=== PATIENT | male | born 1950 | race Caucasian/White ===

== ENCOUNTER 2018-04-28 16:29 | Observation (INO) ==
[2018-04-28 17:09] LABS: Baso % (Auto) 0.1 % (0.0-2.0); Eos % (Auto) 0.5 % (0.0-4.0); Hematocrit 27.4 % (39.0-51.0); Hemoglobin 9.1 gm/dL (13.0-17.0); Lymph # (Auto) 0.7 th/mm3 (1.0-4.8); Lymph % (Auto) 7.9 % (9.0-44.0); Mean Corpuscular HGB Conc 33.2 % (32.0-36.0); Mean Corpuscular Volume 93.2 fL (80.0-100.0); Mean Platelet Volume 10.2 fL (7.0-11.0); Mono # (Auto) 0.6 th/mm3 (0.0-0.9); Mono % (Auto) 6.4 % (0.0-8.0); Neut # (Auto) 7.9 th/mm3 (1.8-7.7); Neut % (Auto) 85.1 % (16.0-70.0); Platelet Count 103 th/mm3 (150-450); Red Blood Count 2.94 mil/mm3 (4.50-5.90); White Blood Count 9.3 th/mm3 (4.0-11.0)
--- NOTE | 2018-04-28 17:22 | CT ---
EXAM DATE: 04/28/2018 4:46 PM EDT AGE/SEX: 67 years / Male INDICATIONS: Altered Mental Status CLINICAL DATA: This is the patient's initial encounter. Patient reports that signs and symptoms have been present for 1 day and indicates a pain score of 0/10. MEDICAL/SURGICAL HISTORY: Diabetes. Gastroesophageal reflux disease. Hypertension. None. RADIATION DOSE: 42.20 CTDI (mGy) [place] [facility] [place]. . TECHNIQUE: CT of the head without contrast. Using automated exposure control and adjustment of the mA and/or kV according to patient size, radiation dose was kept as low as reasonably achievable to ob tain optimal diagnostic quality images. DICOM format image data is available electronically for revi ew and comparison. FINDINGS: Cerebrum: Mild diffuse cerebral atrophy. The ventricles are normal for degree of atrophy. Stable non specific bilateral basal ganglia calcifications. No evidence of midline shift, mass lesion, hemorrhag e or acute infarction. No extraaxial fluid collections are seen. Posterior Fossa: The cerebellum and brainstem are intact. The 4th ventricle is midline. The cerebe llopontine angle is unremarkable. Extracranial: The visualized portion of the orbits is intact. Skull: The calvaria is intact. No evidence of skull fracture. CONCLUSION: 1. Stable mild atrophy without acute intracranial abnormality. . Electronically signed by: Massimo Nieto MD 04/28/2018 5:21 PM EDT
[2018-04-28 17:27] LABS: Amorphous Sediment,Urine Rare /hpf; Bacteria,Urine Occasional /hpf; Bilirubin,Urine Negative (Negative); Clarity,Urine Cloudy (Clear); Color,Urine Yellow (Yellw/Straw); Glucose,Urine (UA) 50 mg/dL (Negative); Leukocyte Esterase,Urine Negative (Negative); Nitrite,Urine Negative (Negative); Specific Gravity,Urine 1.008 (1.002-1.035); Transitional Epi Cells,Urine 1 /hpf
[2018-04-28 17:29] LABS: Anion Gap 10 meq/L (5-15); Aspartate Aminotransferase 25 U/L (15-37); Blood Urea Nitrogen 81 mg/dL (7-18); Calcium 8.4 mg/dL (8.5-10.1); Carbon Dioxide 12.4 meq/L (21.0-32.0); Chloride 121 meq/L (98-107); Glomerular Filtration Rate 11 mL/min (>89); Glucose,Random 155 mg/dL (74-106); Magnesium 1.9 mg/dL (1.5-2.5); Potassium 5.5 meq/L (3.5-5.1); Sodium 143 meq/L (136-145)
[2018-04-28 17:30] LABS: Alanine Aminotransferase 29 U/L (12-78)
[2018-04-28 17:34] LABS: Alkaline Phosphatase 170 U/L (45-117); Total Protein 7.3 g/dL (6.4-8.2); Troponin I 0.03 ng/mL (0.02-0.05)
[2018-04-28] MEDS ORDERED: Sod Chloride 0.9% Inj 1,000 ML IV.SIG SCH (17:45)
--- NOTE | 2018-04-28 18:11 | XR ---
EXAM DATE: 04/28/2018 5:53 PM EDT AGE/SEX: 67 years / Male INDICATIONS: Chest pain CLINICAL DATA: This is the patient's initial encounter. Patient reports that signs and symptoms have been present for 1 day and indicates a pain score of Nonresponsive. MEDICAL/SURGICAL HISTORY: . Diabetes. Gastroesophageal reflux disease. Hypertension None. [place] [facility] [place] . FINDINGS: No significant focal pleural or parenchymal opacities. The cardiomediastinal contours are unremarkabl e. Osseous structures are intact. CONCLUSION: 1. Motion degraded exam. 2. Otherwise, no acute abnormality. Electronically signed by: Massimo Nieto MD 04/28/2018 6:10 PM EDT
[2018-04-28] MEDS ORDERED: Acetaminophen 325 MG Tablet PO PRN (18:36)
[2018-04-28] MEDS ORDERED: Sod Chloride 0.9% Inj 1,000 ML IV.CONT SCH (18:45)
--- NOTE | 2018-04-28 18:46 | ED ---
HPI General Chief complaint: Altered Mental Status Stated complaint: altered mental status Time Seen by Provider: 04/28/18 16:41 History of Present Illness HPI narrative: patient is a 67 year old male present from [place] for evaluation of altered mental status since 644 today. per [facility], [facility] staff said he had slurred speech and was reluctant to move his right upper ext. he is unable r unwolling to provide any history to me. apparently has paranoid schizophrenia. patient does have dnr status on his documentation from [facility] and [facility] had faxed us a copy of dnr. Related Data Home Medications Medication Instructions Recorded Confirmed amoxicillin-pot clavulanate 1 tab PO BID 04/28/18 04/28/18 [Augmentin] atorvastatin 10 mg PO DAILY 04/28/18 04/28/18 docusate sodium 50 mg PO DAILY 04/28/18 04/28/18 ferrous sulfate 325 mg PO DAILY 04/28/18 04/28/18 lorazepam [Ativan] 0.25 mg PO DAILY 04/28/18 04/28/18 quetiapine [Seroquel XR] 200 mg PO QPM 04/28/18 04/28/18 trihexyphenidyl 2 mg PO DAILY 04/28/18 04/28/18 Allergies Allergy/AdvReac Type Severity Reaction Status Date / Time lithium AdvReac Severe CAUSED Verified 04/28/18 16:46 DECREASED RENAL FUNCTION Review of Systems ROS Unobtainable ROS Unobtainable: unobtainable due to mental condition PMFSH Medical History Medical History AV block (Acute) Depression (Acute) Diabetes (Acute) GERD (gastroesophageal reflux disease) (Acute) Hyperlipidemia (Acute) Hypertension (Acute) Hypothyroid (Acute) Muscle weakness (generalized) (Acute) 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 Father ETOH abuse Throat cancer Other Type 2 diabetes mellitus Social History Social History Substance History: Unable to Obtain Smoking Status: Unknown if ever smoked How Often Do You Have a Drink Containing Alcohol: Unable to Obtain Recent Travel in [facility] within the Last 8 Weeks: No Recent Out of Country Travel within the Last 8 Weeks: No Immunization History Tetanus Immunization: Unable to Assess Exam Narrative Exam Narrative: GENERAL: Well-developed, elderly male, pleasantly confused. SKIN: Focused skin assessment warm/dry. HEAD: Atraumatic. Normocephalic. EYES: Pupils equal and round. No scleral icterus. No injection or drainage. ENT: No nasal bleeding or discharge. Mucous membranes pink and moist. NECK: Trachea midline. No JVD. CARDIOVASCULAR: Regular rate and rhythm. No murmur appreciated. RESPIRATORY: No accessory muscle use. Clear to auscultation. Breath sounds equal bilaterally. GASTROINTESTINAL: Abdomen soft, non-tender, nondistended. Hepatic and splenic margins not palpable. MUSCULOSKELETAL: No obvious deformities. No clubbing. No cyanosis. No edema. NEUROLOGICAL: Awake and alert, will not answer orientation questions, occasionally answers with some gibberish or nonsensical answers. Does not follow commands in any extremity but does move all 4 extremities. No obvious facial droop. Does not participate cranial nerve examination. PSYCHIATRIC: Unable to properly assess. Course Initial Documented Vital Signs Pulse Rate 103 H 04/28/18 16:43 Respiratory Rate 20 04/28/18 16:43 Blood Pressure 135/76 04/28/18 16:43 Pulse Oximetry 100 04/28/18 16:43 Last Documented Vital Signs Temperature 98.3 F 04/29/18 12:00 Pulse Rate 110 H 04/29/18 12:00 Respiratory Rate 20 04/29/18 12:00 Blood Pressure 119/65 04/29/18 12:00 Pulse Oximetry 94 L 04/29/18 12:00 Medical Decision Making [facility] Narrative Medical decision making narrative: Patient 67-year-old male with history of paranoid schizophrenia usually talkative, usually walks with assist and is been spending more time in a wheelchair recently. He presents emergency department for evaluation of more altered mental status since about 645 this morning. Nursing and his facility were noticed that he had some right-sided arm weakness and some slurred speech. Patient very uncooperative with my exam, did allow nursing to place a Liu catheter on him which did yield 1500 cc of urine, it was then removed as I think the patient has a high probability of self removal and trauma there in. Patient does not have urinary tract infection, chest x- ray clear, CT head negative. The labs were significant for an acute kidney injury with potassium of 5.5, mild acidosis with a bicarb of 12, he does have uremia which is worsening usually runs in the 40s now 80s. This all was discussed with the patient's sister Ms. Cristela Suarez who is the patient's surrogate as mother deferred this responsibility. She would like the patient to be admitted for further workup and I think this is reasonable. I discussed the patient with Dr. Figueroa, I suggested a palliative care consult may be necessary as well as the patient has had very low healthcare understanding and may not be a candidate for aggressive intervention and is denied healthcare workups in the past and has denied nephrology workup as an outpatient. Medical Screen Exam Complete: Yes Emergency Medical Condition: Yes Lab Data Lab results narrative: I did review the labs on admission. Cr 5.34 up from 3.7 , BUN 81 up from 41, potassium 5.5 up from 4.0, bicarb 12.4 down from 18.9, glucose 155. Comparison values are from 12/27/2017. The labs below are from after admission. Result diagrams: 04/29/18 06:34 04/29/18 06:34 Lab Results 04/28/18 04/28/18 04/28/18 Range/Units 16:51 16:51 16:51 WBC 9.3 (4.0-11.0) th/mm3 RBC 2.94 L (4.50-5.90) mil/mm3 Hgb 9.1 L (13.0-17.0) gm/dL Hct 27.4 L (39.0-51.0) % MCV 93.2 (80.0-100.0) fL MCH 31.0 (27.0-34.0) pg MCHC 33.2 (32.0-36.0) % RDW 15.0 (11.6-17.2) % Plt Count 103 L (150-450) th/mm3 MPV 10.2 (7.0-11.0) fL Neut % (Auto) 85.1 H (16.0-70.0) % Lymph % (Auto) 7.9 L (9.0-44.0) % [place] % (Auto) 6.4 (0.0-8.0) % Eos % (Auto) 0.5 (0.0-4.0) % Baso % (Auto) 0.1 (0.0-2.0) % Neut # (Auto) 7.9 H (1.8-7.7) th/mm3 Lymph # (Auto) 0.7 L (1.0-4.8) th/mm3 [place] # (Auto) 0.6 (0.0-0.9) th/mm3 Eos # (Auto) 0.0 (0.0-0.4) th/mm3 Baso # (Auto) 0.0 (0.0-0.2) th/mm3 WBC Differential . Differential Comment Auto diff final Sodium 143 (136-145) meq/L Potassium 5.5 H (3.5-5.1) meq/L Chloride 121 H (98-107) meq/L Carbon Dioxide 12.4 L (21.0-32.0) meq/L Anion Gap 10 (5-15) meq/L BUN 81 H (7-18) mg/dL Creatinine 5.34 H (0.60-1.30) mg/dL Estimated GFR 11 L (>89) mL/min POC Glucose (68-110) mg/dl Random Glucose 155 H (74-106) mg/dL Calcium 8.4 L (8.5-10.1) mg/dL Magnesium 1.9 (1.5-2.5) mg/dL Total Bilirubin 0.2 (0.2-1.0) mg/dL AST 25 (15-37) U/L ALT 29 (12-78) U/L Alkaline Phosphatase 170 H (45-117) U/L Troponin I 0.03 (0.02-0.05) ng/mL Total Protein 7.3 (6.4-8.2) g/dL Albumin 3.0 L (3.4-5.0) g/dL TSH (0.358-3.740) uIU/mL Urine Color Yellow (Yellw/Straw) Urine Clarity Cloudy H (Clear) Urine pH 5.0 (5.0-8.5) Ur Specific [place] 1.008 (1.002-1.035) Urine Protein 30 H (Neg-Trace) mg/dL Urine Glucose (UA) 50 (Negative) mg/dL Urine Ketones Negative (Negative) mg/dL Urine Occult Blood Small H (Negative) Urine Nitrate Negative (Negative) Urine Bilirubin Negative (Negative) Urine Urobilinogen Less than 2 (Less than 2) mg/dL Ur Leukocyte Esterase Negative (Negative) Urine RBC 1 (0-3) /hpf Urine WBC 1 (0-5) /hpf Ur Transition Epith Cell 1 (None) /hpf Amorphous Sediment Rare H (None) /hpf Urine Bacteria Occasional H (None) /hpf Micro UA Comment Cath-culture ind Ur Microscopic Review Not Reportable Urine Culture Comments Cath-cult indicated 04/28/18 04/28/18 04/28/18 Range/Units 19:16 20:32 20:56 WBC (4.0-11.0) th/mm3 RBC (4.50-5.90) mil/mm3 Hgb (13.0-17.0) gm/dL Hct (39.0-51.0) % MCV (80.0-100.0) fL MCH (27.0-34.0) pg MCHC (32.0-36.0) % RDW (11.6-17.2) % Plt Count (150-450) th/mm3 MPV (7.0-11.0) fL Neut % (Auto) (16.0-70.0) % Lymph % (Auto) (9.0-44.0) % [place] % (Auto) (0.0-8.0) % Eos % (Auto) (0.0-4.0) % Baso % (Auto) (0.0-2.0) % Neut # (Auto) (1.8-7.7) th/mm3 Lymph # (Auto) (1.0-4.8) th/mm3 [place] # (Auto) (0.0-0.9) th/mm3 Eos # (Auto) (0.0-0.4) th/mm3 Baso # (Auto) (0.0-0.2) th/mm3 WBC Differential Differential Comment Sodium (136-145) meq/L Potassium 5.1 (3.5-5.1) meq/L Chloride (98-107) meq/L Carbon Dioxide (21.0-32.0) meq/L Anion Gap (5-15) meq/L BUN (7-18) mg/dL Creatinine (0.60-1.30) mg/dL Estimated GFR (>89) mL/min POC Glucose 37 L* 154 H (68-110) mg/dl Random Glucose (74-106) mg/dL Calcium (8.5-10.1) mg/dL Magnesium (1.5-2.5) mg/dL Total Bilirubin (0.2-1.0) mg/dL AST (15-37) U/L ALT (12-78) U/L Alkaline Phosphatase (45-117) U/L Troponin I (0.02-0.05) ng/mL Total Protein (6.4-8.2) g/dL Albumin (3.4-5.0) g/dL TSH (0.358-3.740) uIU/mL Urine Color (Yellw/Straw) Urine Clarity (Clear) Urine pH (5.0-8.5) Ur Specific [place] (1.002-1.035) Urine Protein (Neg-Trace) mg/dL Urine Glucose (UA) (Negative) mg/dL Urine Ketones (Negative) mg/dL Urine Occult Blood (Negative) Urine Nitrate (Negative) Urine Bilirubin (Negative) Urine Urobilinogen (Less than 2) mg/dL Ur Leukocyte Esterase (Negative) Urine RBC (0-3) /hpf Urine WBC (0-5) /hpf Ur Transition Epith Cell (None) /hpf Amorphous Sediment (None) /hpf Urine Bacteria (None) /hpf Micro UA Comment Ur Microscopic Review Urine Culture Comments 04/29/18 04/29/18 04/29/18 Range/Units 02:04 02:19 06:34 WBC 7.6 (4.0-11.0) th/mm3 RBC 2.97 L (4.50-5.90) mil/mm3 Hgb 9.2 L (13.0-17.0) gm/dL Hct 27.3 L (39.0-51.0) % MCV 91.9 (80.0-100.0) fL MCH 30.9 (27.0-34.0) pg MCHC 33.6 (32.0-36.0) % RDW 14.7 (11.6-17.2) % Plt Count 120 L (150-450) th/mm3 MPV 10.5 (7.0-11.0) fL Neut % (Auto) (16.0-70.0) % Lymph % (Auto) (9.0-44.0) % [place] % (Auto) (0.0-8.0) % Eos % (Auto) (0.0-4.0) % Baso % (Auto) (0.0-2.0) % Neut # (Auto) (1.8-7.7) th/mm3 Lymph # (Auto) (1.0-4.8) th/mm3 [place] # (Auto) (0.0-0.9) th/mm3 Eos # (Auto) (0.0-0.4) th/mm3 Baso # (Auto) (0.0-0.2) th/mm3 WBC Differential Differential Comment Sodium (136-145) meq/L Potassium (3.5-5.1) meq/L Chloride (98-107) meq/L Carbon Dioxide (21.0-32.0) meq/L Anion Gap (5-15) meq/L BUN (7-18) mg/dL Creatinine (0.60-1.30) mg/dL Estimated GFR (>89) mL/min POC Glucose 38 L* 201 H (68-110) mg/dl Random Glucose (74-106) mg/dL Calcium (8.5-10.1) mg/dL Magnesium (1.5-2.5) mg/dL Total Bilirubin (0.2-1.0) mg/dL AST (15-37) U/L ALT (12-78) U/L Alkaline Phosphatase (45-117) U/L Troponin I (0.02-0.05) ng/mL Total Protein (6.4-8.2) g/dL Albumin (3.4-5.0) g/dL TSH (0.358-3.740) uIU/mL Urine Color (Yellw/Straw) Urine Clarity (Clear) Urine pH (5.0-8.5) Ur Specific [place] (1.002-1.035) Urine Protein (Neg-Trace) mg/dL Urine Glucose (UA) (Negative) mg/dL Urine Ketones (Negative) mg/dL Urine Occult Blood (Negative) Urine Nitrate (Negative) Urine Bilirubin (Negative) Urine Urobilinogen (Less than 2) mg/dL Ur Leukocyte Esterase (Negative) Urine RBC (0-3) /hpf Urine WBC (0-5) /hpf Ur Transition Epith Cell (None) /hpf Amorphous Sediment (None) /hpf Urine Bacteria (None) /hpf Micro UA Comment Ur Microscopic Review Urine Culture Comments 04/29/18 04/29/18 04/29/18 Range/Units 06:34 07:58 08:12 WBC (4.0-11.0) th/mm3 RBC (4.50-5.90) mil/mm3 Hgb (13.0-17.0) gm/dL Hct (39.0-51.0) % MCV (80.0-100.0) fL MCH (27.0-34.0) pg MCHC (32.0-36.0) % RDW (11.6-17.2) % Plt Count (150-450) th/mm3 MPV (7.0-11.0) fL Neut % (Auto) (16.0-70.0) % Lymph % (Auto) (9.0-44.0) % [place] % (Auto) (0.0-8.0) % Eos % (Auto) (0.0-4.0) % Baso % (Auto) (0.0-2.0) % Neut # (Auto) (1.8-7.7) th/mm3 Lymph # (Auto) (1.0-4.8) th/mm3 [place] # (Auto) (0.0-0.9) th/mm3 Eos # (Auto) (0.0-0.4) th/mm3 Baso # (Auto) (0.0-0.2) th/mm3 WBC Differential Differential Comment Sodium 148 H (136-145) meq/L Potassium 5.4 H (3.5-5.1) meq/L Chloride 127 H (98-107) meq/L Carbon Dioxide 12.9 L (21.0-32.0) meq/L Anion Gap 8 (5-15) meq/L BUN 75 H (7-18) mg/dL Creatinine 5.15 H (0.60-1.30) mg/dL Estimated GFR 11 L (>89) mL/min POC Glucose 41 L* 223 H (68-110) mg/dl Random Glucose 30 L* D (74-106) mg/dL Calcium 8.7 (8.5-10.1) mg/dL Magnesium (1.5-2.5) mg/dL Total Bilirubin (0.2-1.0) mg/dL AST (15-37) U/L ALT (12-78) U/L Alkaline Phosphatase (45-117) U/L Troponin I (0.02-0.05) ng/mL Total Protein (6.4-8.2) g/dL Albumin (3.4-5.0) g/dL TSH 0.619 (0.358-3.740) uIU/mL Urine Color (Yellw/Straw) Urine Clarity (Clear) Urine pH (5.0-8.5) Ur Specific [place] (1.002-1.035) Urine Protein (Neg-Trace) mg/dL Urine Glucose (UA) (Negative) mg/dL Urine Ketones (Negative) mg/dL Urine Occult Blood (Negative) Urine Nitrate (Negative) Urine Bilirubin (Negative) Urine Urobilinogen (Less than 2) mg/dL Ur Leukocyte Esterase (Negative) Urine RBC (0-3) /hpf Urine WBC (0-5) /hpf Ur Transition Epith Cell (None) /hpf Amorphous Sediment (None) /hpf Urine Bacteria (None) /hpf Micro UA Comment Ur Microscopic Review Urine Culture Comments 04/29/18 04/29/18 Range/Units 09:56 13:05 WBC (4.0-11.0) th/mm3 RBC (4.50-5.90) mil/mm3 Hgb (13.0-17.0) gm/dL Hct (39.0-51.0) % MCV (80.0-100.0) fL MCH (27.0-34.0) pg MCHC (32.0-36.0) % RDW (11.6-17.2) % Plt Count (150-450) th/mm3 MPV (7.0-11.0) fL Neut % (Auto) (16.0-70.0) % Lymph % (Auto) (9.0-44.0) % [place] % (Auto) (0.0-8.0) % Eos % (Auto) (0.0-4.0) % Baso % (Auto) (0.0-2.0) % Neut # (Auto) (1.8-7.7) th/mm3 Lymph # (Auto) (1.0-4.8) th/mm3 [place] # (Auto) (0.0-0.9) th/mm3 Eos # (Auto) (0.0-0.4) th/mm3 Baso # (Auto) (0.0-0.2) th/mm3 WBC Differential Differential Comment Sodium (136-145) meq/L Potassium (3.5-5.1) meq/L Chloride (98-107) meq/L Carbon Dioxide (21.0-32.0) meq/L Anion Gap (5-15) meq/L BUN (7-18) mg/dL Creatinine (0.60-1.30) mg/dL Estimated GFR (>89) mL/min POC Glucose 115 H 96 (68-110) mg/dl Random Glucose (74-106) mg/dL Calcium (8.5-10.1) mg/dL Magnesium (1.5-2.5) mg/dL Total Bilirubin (0.2-1.0) mg/dL AST (15-37) U/L ALT (12-78) U/L Alkaline Phosphatase (45-117) U/L Troponin I (0.02-0.05) ng/mL Total Protein (6.4-8.2) g/dL Albumin (3.4-5.0) g/dL TSH (0.358-3.740) uIU/mL Urine Color (Yellw/Straw) Urine Clarity (Clear) Urine pH (5.0-8.5) Ur Specific [place] (1.002-1.035) Urine Protein (Neg-Trace) mg/dL Urine Glucose (UA) (Negative) mg/dL Urine Ketones (Negative) mg/dL Urine Occult Blood (Negative) Urine Nitrate (Negative) Urine Bilirubin (Negative) Urine Urobilinogen (Less than 2) mg/dL Ur Leukocyte Esterase (Negative) Urine RBC (0-3) /hpf Urine WBC (0-5) /hpf Ur Transition Epith Cell (None) /hpf Amorphous Sediment (None) /hpf Urine Bacteria (None) /hpf Micro UA Comment Ur Microscopic Review Urine Culture Comments Imaging Data Radiologist's impression: Head CT 04/28/18 16:42 CONCLUSION: 1. Stable mild atrophy without acute intracranial abnormality. . Chest X-Ray 04/28/18 17:53 CONCLUSION: 1. Motion degraded exam. 2. Otherwise, no acute abnormality. Abdomen/Bladder Ultrasound 04/29/18 00:00 CONCLUSION: 1. Echogenic kidneys consistent with medical renal disease. 2. No sonographic evidence for significant obstructive uropathy. Discharge Plan Discharge Disposition Patient Disposition: 30 Still Patient Discharge Condition Condition: Fair Discharge Details Diagnosis: Acute kidney injury, Chronic kidney disease, Diabetes, Altered mental status Physicians Team ED Provider: Yosvany Berger Primary Care Provider: Eloy Boogie Attending Provider: Eloy Boogie Other Providers: [facility],Insurance ; Cooper Rhodes ; Radha Berrios ; Cedrick Adhikari ; [facility] & [facility] Discharge Interventions Interventions: ED Discharge Assessment Last Done: 04/28/18 19:31 Status ED Status: Left Department Discharge Information Discharge Date/Time: 04/28/18 19:36
--- NOTE | 2018-04-28 19:10 | P.HP ---
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 He presents to the ER with altered mental status. As outpatient he has recently exhibited an increase in his creatinine level to 3.15 , his compliance with treatment for this has been poor due to his psychiatric state. He lives at an assisted living facility, but care there has been inadequate to assist with his needs. He presents today with creatinine above 5.0, confusion, urinary tract infection. Staff complained of right arm weakness. Patient is a very poor historian, unable to relay a story of any sort. ER staff introduced a urinary catheter which produced 1500 cc of urine over 2 hours. This seems to indicate that patient has a urinary outflow obstruction due to most likely an enlarged prostate. Review of Systems unobtainable due to mental status PMFSH - History History Provided By: Medical Record, Leadership Development Consultant / EMT - Medical / Surgical Hx Neg / Unobtainable Surgical History: Unable to Obtain - Medical History Medical History: Medical History (Last Updated 04/28/18 @ 16:38 by Jennifer Ruvalcaba) Depression Diabetes GERD (gastroesophageal reflux disease) Hyperlipidemia Hypertension Hypothyroid Muscle weakness (generalized) Parkinsonism due to drugs Schizophrenia - Family History Family History: Family History (Last Updated 04/28/18 @ 19:00 by Gonsalo Figueroa MD) Other Type 2 diabetes mellitus - Tobacco History Smoking Status: Unknown if ever smoked - Alcohol History How Often Do You Have a Drink Containing Alcohol: Unable to Obtain - Substance Use History Substance History: Unable to Obtain - Immunization History Tetanus Immunization: Unable to Assess Medications and Allergies Active Medications: Active Medications Acetaminophen (Tylenol) 650 mg PO Q4H PRN PRN Reason: Temp > 100.4 Furosemide (Lasix Inj) 20 mg IV.PUSH ONCE ONE Stop: 04/28/18 18:41 Sodium Chloride (Ns Inj) 1,000 mls @ 0 mls/hr IV.SIG BOLUS [facility] Last Admin: 04/28/18 18:01 Dose: 1,000 mls/hr Sodium Chloride (Ns Inj) 1,000 mls @ 70 mls/hr IV.CONT .[id number] [facility] Ondansetron HCl (Zofran Inj) 4 mg IV.PUSH Q6H PRN PRN Reason: NAUSEA OR VOMITING Sennosides (Senokot) 17.2 mg PO Q12H PRN PRN Reason: Moderate Constipation Sodium Chloride (Ns Flush) 2 ml IV.FLUSH PRN PRN PRN Reason: FLUSH AFTER USING IV ACCESS Tamsulosin HCl (Flomax) 0.4 mg PO HS [facility] Allergies Allergy/AdvReac Type Severity Reaction Status Date / Time lithium AdvReac Severe CAUSED Verified 04/28/18 16:46 DECREASED RENAL FUNCTION Home Medications Medication Instructions Recorded Confirmed Type amoxicillin-pot clavulanate 1 tab PO BID 04/28/18 04/28/18 History [Augmentin] atorvastatin 10 mg PO DAILY 04/28/18 04/28/18 History docusate sodium 50 mg PO DAILY 04/28/18 04/28/18 History ferrous sulfate 325 mg PO DAILY 04/28/18 04/28/18 History lorazepam [Ativan] 0.25 mg PO DAILY 04/28/18 04/28/18 History quetiapine [Seroquel XR] 200 mg PO QPM 04/28/18 04/28/18 History trihexyphenidyl 2 mg PO DAILY 04/28/18 04/28/18 History Exam Vital signs: Vital Signs 04/28/18 16:43 Pulse Rate 103 H Respiratory Rate 20 Blood Pressure 135/76 Pulse Oximetry 100 Intake & Output 04/27/18 04/28/18 04/28/18 18:59 06:59 18:59 Output Total 1500 / 1500 Balance -1500 / -1500 Weight 190 kg Output: Urine Amount (Catheter) 1500 / 1500 Indwelling Urethral Catheter 1500 / 1500 Narrative: GENERAL: Awake but not oriented, emotionally distressed, confused SKIN: Warm and dry, no rashes. HEAD: Atraumatic. Normocephalic. EYES: Pupils equal, round, reactive to light. No scleral icterus. No injection or drainage. ENT: No nasal bleeding or discharge. Moist mucous membranes. Nonerythematous oropharynx. NECK: Trachea midline. No JVD. Thyroid size within normal limits. CARDIOVASCULAR: Regular rate and rhythm. No murmur, no gallops, no rubs. RESPIRATORY: Clear and equal to auscultation bilaterally. No crackles, no wheezes. No accessory muscle use. GASTROINTESTINAL: Abdomen soft, non-tender, nondistended, normal active bowel sounds. Hepatic and splenic margins not palpable. MUSCULOSKELETAL: Extremities without clubbing or cyanosis. No obvious deformities. No edema. NEUROLOGICAL: Awake and alert, not oriented. Generally weak. No obvious cranial nerve deficits. Motor grossly within normal limits. No focal deficits, but patient cannot cooperate with exam. Disorganized speech. PSYCHIATRIC: Inappropriate mood, anxious, no insight or judgment. Results - Labs CBC & Chem 7: 04/28/18 16:51 04/28/18 16:51 Labs: Laboratory Results - last 24 hr 04/28/18 04/28/18 04/28/18 16:51 16:51 16:51 WBC 9.3 RBC 2.94 L Hgb 9.1 L Hct 27.4 L MCV 93.2 MCH 31.0 MCHC 33.2 RDW 15.0 Plt Count 103 L MPV 10.2 Neut % (Auto) 85.1 H Lymph % (Auto) 7.9 L [place] % (Auto) 6.4 Eos % (Auto) 0.5 Baso % (Auto) 0.1 Neut # (Auto) 7.9 H Lymph # (Auto) 0.7 L [place] # (Auto) 0.6 Eos # (Auto) 0.0 Baso # (Auto) 0.0 WBC Differential . Differential Comment Auto diff final Sodium 143 Potassium 5.5 H Chloride 121 H Carbon Dioxide 12.4 L Anion Gap 10 BUN 81 H Creatinine 5.34 H Estimated GFR 11 L Random Glucose 155 H Calcium 8.4 L Magnesium 1.9 Total Bilirubin 0.2 AST 25 ALT 29 Alkaline Phosphatase 170 H Troponin I 0.03 Total Protein 7.3 Albumin 3.0 L Urine Color Yellow Urine Clarity Cloudy H Urine pH 5.0 Ur Specific [place] 1.008 Urine Protein 30 H Urine Glucose (UA) 50 Urine Ketones Negative Urine Occult Blood Small H Urine Nitrate Negative Urine Bilirubin Negative Urine Urobilinogen Less than 2 Ur Leukocyte Esterase Negative Urine RBC 1 Urine WBC 1 Ur Transition Epith Cell 1 Amorphous Sediment Rare H Urine Bacteria Occasional H Micro UA Comment Cath-culture ind Ur Microscopic Review Not Reportable Urine Culture Comments Cath-cult indicated - Imaging Impressions Head CT 04/28/18 16:42 CONCLUSION: 1. Stable mild atrophy without acute intracranial abnormality. . Chest X-Ray 04/28/18 17:53 CONCLUSION: 1. Motion degraded exam. 2. Otherwise, no acute abnormality. Caprini VTE Risk Assessment Caprini VTE Risk Assessment: Moderate/High Risk (score >= 2) Caprini Risk Assessment Model: Point Value = 1 Point Value = 2 Point Value = 3 Point Value = 5 Age 41-60 Minor surgery BMI > 25 kg/m2 Swollen legs Varicose veins or History of unexplained or recurrent spontaneous Oral contraceptives or hormone replacement Sepsis (< 1 month) Serious lung disease, including pneumonia (< 1 month) Abnormal pulmonary function Acute myocardial infarction Congestive heart failure (< 1 month) History of inflammatory bowel disease Medical patient at bed rest Age 61-74 Arthroscopic surgery Major open surgery (> 45 min) Laparoscopic surgery (> 45 min) Malignancy Confined to bed (> 72 hours) Immobilizing plaster cast Central venous access Age >= 75 History of VTE Family history of VTE Factor V Leiden Prothrombin [id number] Lupus anticoagulant Anticardiolipin antibodies Elevated serum homocysteine Heparin-induced thrombocytopenia Other congenital or acquired thrombophilia Stroke (< 1 month) Elective arthroplasty Hip, pelvis, or leg fracture Acute spinal cord injury (< 1 month) Prophylaxis Regimen: Total Risk Factor Score Risk Level Prophylaxis Regimen 0-1 Low Early ambulation 2 Moderate Order ONE of the following: *Sequential Compression Device (SCD) *Heparin 5000 units SQ BID 3-4 Higher Order ONE of the following medications: *Heparin 5000 units SQ TID *Enoxaparin/Lovenox 40 mg SQ daily (WT < 150 kg, CrCl > 30 mL/min) *Enoxaparin/Lovenox 30 mg SQ daily (WT < 150 kg, CrCl > 10-29 mL/min) *Enoxaparin/Lovenox 30 mg SQ BID (WT < 150 kg, CrCl > 30 mL/min) AND/OR *Sequential Compression Device (SCD) 5 or more Highest Order ONE of the following medications: *Heparin 5000 units SQ TID (Preferred with Epidurals) *Enoxaparin/Lovenox 40 mg SQ daily (WT < 150 kg, CrCl > 30 mL/min) *Enoxaparin/Lovenox 30 mg SQ daily (WT < 150 kg, CrCl > 10-29 mL/min) *Enoxaparin/Lovenox 30 mg SQ BID (WT < 150 kg, CrCl > 30 mL/min) AND *Sequential Compression Device (SCD) Assessment and Plan - Plan Acute renal failure Seems to be secondary to urinary outflow obstruction given that urinary catheter produced 1500 cc Patient cannot tolerate catheter due to his psychiatric state, he is at risk for ripping it out Recommend bladder scanning 2 times per shift, straight cath as needed Continue IV fluid hydration, combining with Lasix to encourage removal of excess potassium Nephrology consulted to assist with management Hyperkalemia Level was up to 5.5 on admission, no cardiac signs Continue telemetry Repeat stat potassium level now given that he produced 1500 cc output Normal saline IV fluid hydration combined with single dose of Lasix to encourage removal Straight cath as needed, bladder scans twice per shift Recheck potassium trend with a.m. labs Enlarged prostate, urinary outflow obstruction BPH versus prostate cancer Check current PSA now Straight catheter as needed, bladder scans twice per shift Urinary tract infection Rocephin and follow cultures Paranoid schizophrenia He is altered but his baseline is uncertain, he has been poorly compliant with outpatient follow-ups and treatment plans Consult palliative care to assist with treatment plan Right arm weakness Allegedly reason for visit by his facility No evidence of right arm weakness at this time, he has generalized weakness CT of the brain was negative, follow-up with MRI of brain Type 2 diabetes Accu-Cheks with sliding scale insulin coverage Diabetic diet Hypothyroidism Resume home dose levothyroxine Check TSH with a.m. labs DVT prophylaxis SCD hose, avoiding chemoprophylaxis for now due to risk of hematuria with straight cathing and possible urinary catheter placement
[2018-04-28] MEDS: Dextrose 50% in Water 50 ML Vial IV.PUSH PRN (20:34)
[2018-04-28] MEDS: Insulin NovoLOG Aspart Correctional Sugar Inj SQ SCH (20:47)
[2018-04-29] MEDS: Dextrose 50% in Water 50 ML Vial IV.PUSH PRN ×2 (02:08→08:04)
[2018-04-29 07:59] LABS: Hematocrit 27.3 % (39.0-51.0); Hemoglobin 9.2 gm/dL (13.0-17.0); Mean Corpuscular HGB Conc 33.6 % (32.0-36.0); Mean Corpuscular Hemoglobin 30.9 pg (27.0-34.0); Mean Corpuscular Volume 91.9 fL (80.0-100.0); Mean Platelet Volume 10.5 fL (7.0-11.0); Platelet Count 120 th/mm3 (150-450); Red Blood Count 2.97 mil/mm3 (4.50-5.90); Red Cell Distribution Width 14.7 % (11.6-17.2); White Blood Count 7.6 th/mm3 (4.0-11.0)
[2018-04-29] MEDS: Insulin NovoLOG Aspart Correctional Sugar Inj SQ SCH ×4 (08:00→21:48)
[2018-04-29 08:24] LABS: Calcium 8.7 mg/dL (8.5-10.1); Carbon Dioxide 12.9 meq/L (21.0-32.0); Potassium 5.4 meq/L (3.5-5.1); Thyroid Stimulating Hormone 0.619 uIU/mL (0.358-3.740)
--- NOTE | 2018-04-29 08:39 | P.CONNP ---
<Amy Moreno - Last Filed: 04/29/18 08:17> History of Present Illness Service: Nephrology Consult date: 04/29/18 Requesting Physician: Gonsalo Figueroa Reason for Consult: Acute kidney injury on chronic kidney disease Primary Care Provider: Eloy Boogie MD Chief Complaint: AMS History of Present Illness: Patient is a 67-year-old male with a history of paranoid schizophrenia, type 2 diabetes, hypothyroidism, and chronic kidney disease. He presents to the ER with altered mental status. History is all obtained per chart secondary to mental status. Nephrology is consulted for acute kidney injury. Creatinine noted to be 5.34, potassium 5.5, and HCO3 at 12.4. Repeat labs are pending. Urinalysis is abnormal with proteinuria. Patient does have chronic kidney disease and per recorders Creatinine of 3.44 on 11/21/17. Acute worsening in kidney function could be related to obstruction. Indwelling placed and drained of 1500 ml. Has since been removed secondary and patient is now being bladder scanned prior to insertion. IVF are infusing. Review of Systems unobtainable due to mental status PMFSH - History History Provided By: Medical Record - Medical History Medical History: Medical History (Last Updated 04/28/18 @ 16:38 by Jennifer Ruvalcaba) Depression Diabetes GERD (gastroesophageal reflux disease) Hyperlipidemia Hypertension Hypothyroid Muscle weakness (generalized) Parkinsonism due to drugs Schizophrenia - Family History Family History: Family History (Last Updated 04/28/18 @ 19:00 by Gonsalo Figueroa MD) Other Type 2 diabetes mellitus - Tobacco History Smoking Status: Unknown if ever smoked - Alcohol History How Often Do You Have a Drink Containing Alcohol: Unable to Obtain - Substance Use History Substance History: Unable to Obtain - Travel History Recent Travel in the [place] Within the Last 8 Weeks: No Recent Travel Out of the Country Within the Last 8 Weeks: No - Immunization History Tetanus Immunization: Unable to Assess Medications and Allergies Allergies Allergy/AdvReac Type Severity Reaction Status Date / Time lithium AdvReac Severe CAUSED Verified 04/28/18 16:46 DECREASED RENAL FUNCTION Home Medications Medication Instructions Recorded Confirmed Type amoxicillin-pot clavulanate 1 tab PO BID 04/28/18 04/28/18 History [Augmentin] atorvastatin 10 mg PO DAILY 04/28/18 04/28/18 History docusate sodium 50 mg PO DAILY 04/28/18 04/28/18 History ferrous sulfate 325 mg PO DAILY 04/28/18 04/28/18 History lorazepam [Ativan] 0.25 mg PO DAILY 04/28/18 04/28/18 History quetiapine [Seroquel XR] 200 mg PO QPM 04/28/18 04/28/18 History trihexyphenidyl 2 mg PO DAILY 04/28/18 04/28/18 History Active Medications: Active Medications Acetaminophen (Tylenol) 650 mg PO Q4H PRN PRN Reason: Temp > 100.4 Dextrose (D50w Vial) 50 ml IV.PUSH UNSCH PRN PRN Reason: PER HYPOGLYCEMIA PROTOCOL Last Admin: 04/29/18 08:04 Dose: 50 ml Glucagon (Glucagon Inj) 1 mg OTHER PRN PRN PRN Reason: for Hypoglycemia Protocol Sodium Chloride (Ns Inj) 1,000 mls @ 0 mls/hr IV.SIG BOLUS [facility] Last Infusion: 04/28/18 19:01 Dose: Infused Sodium Chloride (Ns Inj) 1,000 mls @ 70 mls/hr IV.CONT .[id number] [facility] Last Admin: 04/28/18 20:09 Dose: 70 mls/hr Ceftriaxone Sodium 1,000 mg/ (Sodium Chloride) 100 mls @ 200 mls/hr IV.SIG Q24H [facility] Last Infusion: 04/28/18 20:35 Dose: Infused Insulin Aspart (Novolog Insulin Correctional Sugar Inj) 0 unit SQ ACHS [facility]; Protocol Last Admin: 04/28/18 20:47 Dose: Not Given Lorazepam (Ativan) 0.25 mg PO DAILY [facility] Miscellaneous (Pill Splitter) 1 each OTHER UNSCH [facility] Ondansetron HCl (Zofran Inj) 4 mg IV.PUSH Q6H PRN PRN Reason: NAUSEA OR VOMITING Quetiapine Fumarate (Seroquel) 200 mg PO QPM [facility] Sennosides (Senokot) 17.2 mg PO Q12H PRN PRN Reason: Moderate Constipation Sodium Chloride (Ns Flush) 2 ml IV.FLUSH PRN PRN PRN Reason: FLUSH AFTER USING IV ACCESS Tamsulosin HCl (Flomax) 0.4 mg PO HS [facility] Last Admin: 04/28/18 20:09 Dose: 0.4 mg Trihexyphenidyl HCl (Artane) 2 mg PO DAILY [facility] Exam Vital signs: Vital Signs 04/28/18 16:43 04/28/18 20:22 04/28/18 21:07 Temperature Pulse Rate 103 H 101 H 104 H Respiratory Rate 20 16 Blood Pressure 135/76 121/58 L Pulse Oximetry 100 97 04/29/18 00:00 04/29/18 04:00 04/29/18 07:37 Temperature 98.8 F 97.7 F 97.6 F Pulse Rate 104 H 105 H 104 H Respiratory Rate 20 23 20 Blood Pressure 127/62 121/57 L 121/60 Pulse Oximetry 104 H 99 97 Intake & Output 04/28/18 04/29/18 04/29/18 18:59 06:59 18:59 Intake Total 1340 / 1340 Output Total 1500 / 1500 800 / 800 Balance -1500 / -1500 540 / 540 Weight 190 kg 113.398 kg Intake: IV 1100 / 1100 NS Inj 1,000 ML @ Wide Open IV. 1000 / 1000 SIG BOLUS [facility] Rx#:[id number] Rocephin Inj 1,000 MG In NS Inj 100 / 100 100 ML @ 200 mls/hr IV.SIG Q24H [facility] Rx#:[id number] Oral 240 / 240 Output: Urine 800 / 800 Urine Amount (Catheter) 1500 / 1500 Indwelling Urethral Catheter 1500 / 1500 Other: # Voids 1 # Incontinent Voids 2 # Emeses 1 Weight On Admission 113.398 kg Narrative: GENERAL: Confused and mumbles when asked questions. SKIN: Warm and dry. NECK: Supple, trachea midline. No JVD or lymphadenopathy. CARDIOVASCULAR: Regular rate and rhythm without murmurs, gallops, or rubs. RESPIRATORY: Breath sounds equal bilaterally. No accessory muscle use. GASTROINTESTINAL: Abdomen soft, non-tender, large MUSCULOSKELETAL: No cyanosis, or edema. BACK: Nontender without obvious deformity. No CVA tenderness. Results - Lab Results 04/29/18 06:34 04/28/18 19:16 Most recent lab results Calcium 8.4 mg/dL (8.5-10.1) L 04/28/18 16:51 Magnesium 1.9 mg/dL (1.5-2.5) 04/28/18 16:51 Assessment and Plan - Assessment (1) Acute kidney injury Code(s): N17.9 - Acute kidney failure, unspecified Status: Acute Plan: Acute kidney injury with creatinine noted to be 5.34, potassium 5.5, and HCO3 at 12.4. Acute worsening in kidney function could be partially related to obstruction or infection Urinalysis is abnormal with proteinuria. Plan Avoid nephrotoxins as possible. Renal US looking for mass or obstruction. Continue antibiotics, culture pending. Urine for osmolarity, sodium, and creatinine ordered Continue Flomax Patient may need indwelling catheter if continues to have issues with retention. Patient at risk for pulling on catheter with AMS. Bladder scan and I+O cath as needed. Continue IVF's will change to D5 1/4 NS with bicarbonate. Repeat labs are pending. (2) Chronic kidney disease Code(s): N18.9 - Chronic kidney disease, unspecified Status: Acute Plan: Has advanced chronic kidney disease stage 4 Most likely from diabetes (3) Urinary tract infection Code(s): N39.0 - Urinary tract infection, site not specified Status: Acute Plan: On antibiotics, culture pending (4) Diabetes Code(s): E11.9 - Type 2 diabetes mellitus without complications Status: Acute Plan: Hypoglycemic Maintain blood sugars between 140 mg/dl to 180 mg/dl <Rosa Maria Berrios Q - Last Filed: 04/30/18 18:15> History of Present Illness Primary Care Provider: Eloy Boogie MD [facility] - Medical History Medical History: Medical History (Last Updated 04/28/18 @ 16:38 by Jennifer Ruvalcaba) Depression Diabetes GERD (gastroesophageal reflux disease) Hyperlipidemia Hypertension Hypothyroid Muscle weakness (generalized) Parkinsonism due to drugs Schizophrenia - Family History Family History: Family History (Last Updated 04/28/18 @ 19:00 by Gonsalo Figueroa MD) Other Type 2 diabetes mellitus Medications and Allergies Active Medications: Active Medications Acetaminophen (Tylenol) 650 mg PO Q4H PRN PRN Reason: Temp > 100.4 Dextrose (D50w Vial) 50 ml IV.PUSH UNSCH PRN PRN Reason: PER HYPOGLYCEMIA PROTOCOL Last Admin: 04/29/18 08:04 Dose: 50 ml Glucagon (Glucagon Inj) 1 mg OTHER PRN PRN PRN Reason: for Hypoglycemia Protocol Sodium Chloride (Ns Inj) 1,000 mls @ 0 mls/hr IV.SIG BOLUS [facility] Last Infusion: 04/28/18 19:01 Dose: Infused Ceftriaxone Sodium 1,000 mg/ (Sodium Chloride) 100 mls @ 200 mls/hr IV.SIG Q24H [facility] Last Admin: 04/30/18 05:31 Dose: Not Given Sodium Bicarbonate 50 meq/ (Dextrose/Sodium Chloride) 1,000 mls @ 100 mls/hr IV.CONT .Q10H [facility] Last Admin: 04/30/18 17:44 Dose: Not Given Insulin Aspart (Novolog Insulin Correctional Sugar Inj) 0 unit SQ ACHS [facility]; Protocol Last Admin: 04/30/18 13:11 Dose: 3 unit Lorazepam (Ativan) 0.25 mg PO DAILY [facility] Last Admin: 04/30/18 09:19 Dose: 0.25 mg Miscellaneous (Pill Splitter) 1 each [facility] Ondansetron HCl (Zofran Inj) 4 mg IV.PUSH Q6H PRN PRN Reason: NAUSEA OR VOMITING Quetiapine Fumarate (Seroquel) 200 mg PO QPM [facility] Last Admin: 04/29/18 23:50 Dose: Not Given Sennosides (Senokot) 17.2 mg PO Q12H PRN PRN Reason: Moderate Constipation Sodium Chloride (Ns Flush) 2 ml IV.FLUSH PRN PRN PRN Reason: FLUSH AFTER USING IV ACCESS Tamsulosin HCl (Flomax) 0.4 mg PO HS [facility] Last Admin: 04/29/18 23:50 Dose: Not Given Trihexyphenidyl HCl (Artane) 2 mg PO DAILY [facility] Last Admin: 04/30/18 09:19 Dose: 2 mg Exam Vital signs: Vital Signs 04/29/18 20:00 04/30/18 00:00 04/30/18 04:00 Temperature 98.3 F 97.7 F 98.2 F Pulse Rate 113 H 107 H 105 H Respiratory Rate 16 16 16 Blood Pressure 137/65 123/64 105/63 Pulse Oximetry 98 97 96 04/30/18 08:00 04/30/18 11:25 04/30/18 16:00 Temperature 98.1 F 98.4 F Pulse Rate 101 H 103 H 92 H Respiratory Rate 18 18 Blood Pressure 109/71 136/67 Pulse Oximetry 100 100 Intake & Output 04/29/18 04/30/18 04/30/18 18:59 06:59 18:59 Intake Total 800 / 800 240 / 240 Output Total 450 / 450 Balance 350 / 350 240 / 240 Intake: IV 800 / 800 NS Inj 1,000 ML @ 70 mls/hr IV. 800 / 800 CONT .[id number] [facility] Rx#:[id number] Oral 240 / 240 Output: Urine Amount (Catheter) 450 / 450 Straight 450 / 450 Other: # Incontinent Voids 1 Date of Last Bowel Movement 04/30/18 # Bowel Movements 1 Results - Lab Results 04/30/18 15:05 04/30/18 15:05 Most recent lab results Calcium 8.3 mg/dL (8.5-10.1) L 04/30/18 15:05 Phosphorus 7.1 mg/dL (2.5-4.9) H 04/30/18 15:05 Magnesium 1.9 mg/dL (1.5-2.5) 04/28/18 16:51 Assessment and Plan - Assessment (1) Acute kidney injury Code(s): N17.9 - Acute kidney failure, unspecified Status: Acute Plan: Patient seen and examined, agree with above. Has DONNA, possibly pre renal and/or ATN, Hco3 is low, has metabolic acidosis. Encourage oral intake. (2) Chronic kidney disease Code(s): N18.9 - Chronic kidney disease, unspecified Status: Acute (3) Urinary tract infection Code(s): N39.0 - Urinary tract infection, site not specified Status: Acute (4) Diabetes Code(s): E11.9 - Type 2 diabetes mellitus without complications Status: Acute <Rosa Maria Berrios Q - Last Filed: 04/30/18 18:15> (4) Diabetes Qualifiers: Diabetes mellitus type: type 2 Diabetes mellitus complication status: with kidney complications
--- NOTE | 2018-04-29 09:44 | P.PNFP ---
Subjective Interval history: weak, lethargic. discussed with nursing. low gluc. Results - Labs Result diagrams: 04/29/18 06:34 04/29/18 06:34 Abnormal lab results 04/28/18 04/28/18 04/28/18 Range/Units 16:51 16:51 16:51 RBC 2.94 L (4.50-5.90) mil/mm3 Hgb 9.1 L (13.0-17.0) gm/dL Hct 27.4 L (39.0-51.0) % Plt Count 103 L (150-450) th/mm3 Neut % (Auto) 85.1 H (16.0-70.0) % Lymph % (Auto) 7.9 L (9.0-44.0) % Neut # (Auto) 7.9 H (1.8-7.7) th/mm3 Lymph # (Auto) 0.7 L (1.0-4.8) th/mm3 Sodium (136-145) meq/L Potassium 5.5 H (3.5-5.1) meq/L Chloride 121 H (98-107) meq/L Carbon Dioxide 12.4 L (21.0-32.0) meq/L BUN 81 H (7-18) mg/dL Creatinine 5.34 H (0.60-1.30) mg/dL Estimated GFR 11 L (>89) mL/min POC Glucose (68-110) mg/dl Random Glucose 155 H (74-106) mg/dL Calcium 8.4 L (8.5-10.1) mg/dL Alkaline Phosphatase 170 H (45-117) U/L Albumin 3.0 L (3.4-5.0) g/dL Urine Clarity Cloudy H (Clear) Urine Protein 30 H (Neg-Trace) mg/dL Urine Occult Blood Small H (Negative) Amorphous Sediment Rare H (None) /hpf Urine Bacteria Occasional H (None) /hpf 04/28/18 04/28/18 04/29/18 Range/Units 20:32 20:56 02:04 RBC (4.50-5.90) mil/mm3 Hgb (13.0-17.0) gm/dL Hct (39.0-51.0) % Plt Count (150-450) th/mm3 Neut % (Auto) (16.0-70.0) % Lymph % (Auto) (9.0-44.0) % Neut # (Auto) (1.8-7.7) th/mm3 Lymph # (Auto) (1.0-4.8) th/mm3 Sodium (136-145) meq/L Potassium (3.5-5.1) meq/L Chloride (98-107) meq/L Carbon Dioxide (21.0-32.0) meq/L BUN (7-18) mg/dL Creatinine (0.60-1.30) mg/dL Estimated GFR (>89) mL/min POC Glucose 37 L* 154 H 38 L* (68-110) mg/dl Random Glucose (74-106) mg/dL Calcium (8.5-10.1) mg/dL Alkaline Phosphatase (45-117) U/L Albumin (3.4-5.0) g/dL Urine Clarity (Clear) Urine Protein (Neg-Trace) mg/dL Urine Occult Blood (Negative) Amorphous Sediment (None) /hpf Urine Bacteria (None) /hpf 04/29/18 04/29/18 04/29/18 Range/Units 02:19 06:34 06:34 RBC 2.97 L (4.50-5.90) mil/mm3 Hgb 9.2 L (13.0-17.0) gm/dL Hct 27.3 L (39.0-51.0) % Plt Count 120 L (150-450) th/mm3 Neut % (Auto) (16.0-70.0) % Lymph % (Auto) (9.0-44.0) % Neut # (Auto) (1.8-7.7) th/mm3 Lymph # (Auto) (1.0-4.8) th/mm3 Sodium 148 H (136-145) meq/L Potassium 5.4 H (3.5-5.1) meq/L Chloride 127 H (98-107) meq/L Carbon Dioxide 12.9 L (21.0-32.0) meq/L BUN 75 H (7-18) mg/dL Creatinine 5.15 H (0.60-1.30) mg/dL Estimated GFR 11 L (>89) mL/min POC Glucose 201 H (68-110) mg/dl Random Glucose 30 L* D (74-106) mg/dL Calcium (8.5-10.1) mg/dL Alkaline Phosphatase (45-117) U/L Albumin (3.4-5.0) g/dL Urine Clarity (Clear) Urine Protein (Neg-Trace) mg/dL Urine Occult Blood (Negative) Amorphous Sediment (None) /hpf Urine Bacteria (None) /hpf 04/29/18 04/29/18 Range/Units 07:58 08:12 RBC (4.50-5.90) mil/mm3 Hgb (13.0-17.0) gm/dL Hct (39.0-51.0) % Plt Count (150-450) th/mm3 Neut % (Auto) (16.0-70.0) % Lymph % (Auto) (9.0-44.0) % Neut # (Auto) (1.8-7.7) th/mm3 Lymph # (Auto) (1.0-4.8) th/mm3 Sodium (136-145) meq/L Potassium (3.5-5.1) meq/L Chloride (98-107) meq/L Carbon Dioxide (21.0-32.0) meq/L BUN (7-18) mg/dL Creatinine (0.60-1.30) mg/dL Estimated GFR (>89) mL/min POC Glucose 41 L* 223 H (68-110) mg/dl Random Glucose (74-106) mg/dL Calcium (8.5-10.1) mg/dL Alkaline Phosphatase (45-117) U/L Albumin (3.4-5.0) g/dL Urine Clarity (Clear) Urine Protein (Neg-Trace) mg/dL Urine Occult Blood (Negative) Amorphous Sediment (None) /hpf Urine Bacteria (None) /hpf Short CBC 04/28/18 04/29/18 Range/Units 16:51 06:34 WBC 9.3 7.6 (4.0-11.0) th/mm3 Hgb 9.1 L 9.2 L (13.0-17.0) gm/dL Hct 27.4 L 27.3 L (39.0-51.0) % Plt Count 103 L 120 L (150-450) th/mm3 BMP 04/28/18 04/28/18 04/29/18 16:51 19:16 06:34 Sodium 143 148 H Potassium 5.5 H 5.1 5.4 H Chloride 121 H 127 H Carbon Dioxide 12.4 L 12.9 L BUN 81 H 75 H Creatinine 5.34 H 5.15 H Calcium 8.4 L 8.7 Cardiac Enzymes 04/28/18 Range/Units 16:51 Troponin I 0.03 (0.02-0.05) ng/mL Liver Function 04/28/18 Range/Units 16:51 Total Bilirubin 0.2 (0.2-1.0) mg/dL AST 25 (15-37) U/L ALT 29 (12-78) U/L Alkaline Phosphatase 170 H (45-117) U/L Albumin 3.0 L (3.4-5.0) g/dL Urine 04/28/18 Range/Units 16:51 Urine Color Yellow (Yellw/Straw) Urine Clarity Cloudy H (Clear) Urine pH 5.0 (5.0-8.5) Ur Specific [place] 1.008 (1.002-1.035) Urine Protein 30 H (Neg-Trace) mg/dL Urine Glucose (UA) 50 (Negative) mg/dL - Imaging Impressions Head CT 04/28/18 16:42 CONCLUSION: 1. Stable mild atrophy without acute intracranial abnormality. . Chest X-Ray 04/28/18 17:53 CONCLUSION: 1. Motion degraded exam. 2. Otherwise, no acute abnormality. Physical Exam Vital signs: Vital Signs 04/28/18 16:43 04/28/18 20:22 04/28/18 21:07 Temperature Pulse Rate 103 H 101 H 104 H Respiratory Rate 20 16 Blood Pressure 135/76 121/58 L Pulse Oximetry 100 97 04/29/18 00:00 04/29/18 04:00 04/29/18 07:37 Temperature 98.8 F 97.7 F 97.6 F Pulse Rate 104 H 105 H 104 H Respiratory Rate 20 23 20 Blood Pressure 127/62 121/57 L 121/60 Pulse Oximetry 104 H 99 97 Intake & Output 04/28/18 04/29/18 04/29/18 18:59 06:59 18:59 Intake Total 1340 / 1340 Output Total 1500 / 1500 800 / 800 Balance -1500 / -1500 540 / 540 Weight 190 kg 113.398 kg Intake: IV 1100 / 1100 NS Inj 1,000 ML @ Wide Open IV. 1000 / 1000 SIG BOLUS PATRICK Rx#:[id number] Rocephin Inj 1,000 MG In NS Inj 100 / 100 100 ML @ 200 mls/hr IV.SIG Q24H PATRICK Rx#:[id number] Oral 240 / 240 Output: Urine 800 / 800 Urine Amount (Catheter) 1500 / 1500 Indwelling Urethral Catheter 1500 / 1500 Other: # Voids 1 # Incontinent Voids 2 # Emeses 1 Weight On Admission 113.398 kg - Constitutional no acute distress, chronically ill appearing - Routine HEENT Exam Head: Present: normocephalic - Routine Neck Exam Present: supple, full ROM - Routine Respiratory Exam Present: CTA bilaterally, distant breath sounds, diminished air movement - Routine Cardiovascular Exam Present: RRR, S1, S2 - Routine Abdominal Exam Present: soft, normoactive bowel sounds - Routine Exam Penile: Present: circumcision - Routine Extremities Exam Present: edema, full ROM - Routine Skin Exam Present: intact - Routine Neurological Exam Present: alert, oriented X3 - Routine Psychiatric Exam Present: anxious, paranoid - Urinary Catheter Management Indwelling Urethral Catheter Cath placed during this visit: yes, but has since been removed by the nurse Urethral indwelling: No Reason for continuing: Decision to DC catheter Insertion date: 04/28/18 Insertion time: 16:45 Removal date: 04/28/18 Removal time: 18:31 Assessment and Plan - Assessment (1) Acute kidney injury Code(s): N17.9 - Acute kidney failure, unspecified Status: Acute Plan: continue current meds. d5 ivf. followup labs and glucose. replacement may be an issue. (2) Chronic kidney disease Code(s): N18.9 - Chronic kidney disease, unspecified Status: Acute (3) Urinary tract infection Code(s): N39.0 - Urinary tract infection, site not specified Status: Acute (4) Diabetes Code(s): E11.9 - Type 2 diabetes mellitus without complications Status: Acute
--- NOTE | 2018-04-29 10:47 | P.CONPAL ---
Consult Service: Palliative Care Requesting Physician: Gonsalo Figueroa Reason for Consult: a. To assist with evaluation and management of symptoms including:Altered mental status b. To assist medical decision maker(s) with: better understanding of current medical conditions; weighing benefits/burdens of medical treatment options; making medical treatment decisions. Primary Care Provider: Eloy Boogie MD History of Present Illness History of Present Illness: Mr. Brantley is a 67-year-old male patient with a history of paranoid schizophrenia who lives at [facility]. He presented to [facility] ED via EMS on for evaluation of altered mental status with some right-sided weakness in the upper extremity and slurred speech. Diagnostic data: * Vital signs: Pulse 103, respirations 20, BP 135/76, oxygen saturation 100% on room air * WBC: 9.3, hemoglobin 9.2, hematocrit 27.4, platelets 103, neutrophils 85.1% * Sodium: 143, potassium 5.5, chloride 121, carbon dioxide 12.4, random glucose 155, calcium 8.4, magnesium 1.9 * BUN: 81, creatinine 5.34, GFR 11 * Total bilirubin: 0.2, AST 25, ALT 29, alkaline phosphatase 170 * Troponin: 0.03 * Total protein: 7.3, albumin 3.0 * Urinalysis indicative of UTI * Chest x-ray showed no acute abnormalities * CT head with stable mild atrophy; no acute intracranial abnormalities * EKG: Sinus rhythm with first-degree AV block; incomplete right bundle branch block; left anterior fascicular block Per notes, the ED physician spoke to the patient's sister, Ms. Cristela Suarez, who is reportedly acting in the role of the healthcare proxy decision-maker as the patient's mother opted out of this responsibility (this will need to be confirmed with the patient's). Patient's sister was amenable to admitting the patient for further workup. Patient received Rocephin for abnormal urinalysis; urine culture pending. While in the ED, a Liu catheter was placed producing at 1500 mL's of urine over a 2-hour which is concerning for urinary outflow obstruction most likely related to enlarged prostate. Liu catheter was removed due to concern that he will rip it out. Recommendations for bladder scanning 2 times per shift and straight cath as needed. PSA pending. Nephrology was consulted to assist with management. Amy Gurrola APRN (nephrology) evaluated the patient. Additional lab work was ordered (urine for osmolarity, sodium and creatinine). Started on Flomax. IV fluids changed to D5 1/4 NS with bicarbonate. Palliative Care was consulted to assist with symptom management and to discuss with the family the benefits and burdens of her current illnesses and the options regarding future care. Patient refusing physical exam; did not wish to speak with palliative care. Attempted to contact patient's mother via telephone , unable to leave a message. Palliative care was able to speak to the patient' s sister, Cristela. Update provided on patient's medical condition. She will be arriving in [place] this evening. Palliative care will likely meet with family tomorrow 04/30/2018 Function/Cognitive Trajectory: Patient has a long history of mental illness requiring psychiatric hospitalizations. He has paranoid schizophrenia. He is unable to care for himself and lives at [facility]. Review of Systems unobtainable due to mental status PMFSH - History History Provided By: Medical Record - Medical History Medical History: Medical History (Last Updated 04/29/18 @ 10:14 by BRADY Willingham) AV block Depression Diabetes GERD (gastroesophageal reflux disease) Hyperlipidemia Hypertension Hypothyroid Muscle weakness (generalized) Parkinsonism due to drugs Schizophrenia Thrombocytopenia - Surgical History Surgical History: Surgical History (Last Updated 04/29/18 @ 10:14 by BRADY Willingham) History of inguinal hernia repair - Family History Family History: Family History (Last Updated 04/29/18 @ 10:15 by BRADY Willingham) Grandparent No problems noted. Father ETOH abuse Throat cancer Other Type 2 diabetes mellitus - Social History I have reviewed the patient's Social History: Yes - Tobacco History Second Hand Smoke Exposure: No Tobacco Use In Past 30 Days: No (UNKNOWN) Smoking Status: Unknown if ever smoked - Alcohol History How Often Do You Have a Drink Containing Alcohol: Unable to Obtain - Substance Use History Substance History: Unable to Obtain - Travel History Recent Travel in the [place] Within the Last 8 Weeks: No Recent Travel Out of the Country Within the Last 8 Weeks: No - Immunization History Tetanus Immunization: Unable to Assess Medications and Allergies Active Medications: Active Medications Acetaminophen (Tylenol) 650 mg PO Q4H PRN PRN Reason: Temp > 100.4 Dextrose (D50w Vial) 50 ml IV.PUSH UNSCH PRN PRN Reason: PER HYPOGLYCEMIA PROTOCOL Last Admin: 04/29/18 08:04 Dose: 50 ml Glucagon (Glucagon Inj) 1 mg OTHER PRN PRN PRN Reason: for Hypoglycemia Protocol Sodium Chloride (Ns Inj) 1,000 mls @ 0 mls/hr IV.SIG BOLUS ON LICENSE OF [facility] Last Infusion: 04/28/18 19:01 Dose: Infused Ceftriaxone Sodium 1,000 mg/ (Sodium Chloride) 100 mls @ 200 mls/hr IV.SIG Q24H PATRICK Last Infusion: 04/28/18 20:35 Dose: Infused Sodium Bicarbonate 50 meq/ (Dextrose/Sodium Chloride) 1,000 mls @ 100 mls/hr IV.CONT .Q10H PATRICK Insulin Aspart (Novolog Insulin Correctional Sugar Inj) 0 unit SQ ACHS ON LICENSE OF [facility]; Protocol Last Admin: 04/29/18 08:00 Dose: Not Given Lorazepam (Ativan) 0.25 mg PO DAILY ON LICENSE OF [facility] Miscellaneous (Pill Splitter) 1 each OTHER UNSCH ON LICENSE OF [facility] Ondansetron HCl (Zofran Inj) 4 mg IV.PUSH Q6H PRN PRN Reason: NAUSEA OR VOMITING Quetiapine Fumarate (Seroquel) 200 mg PO QPM ON LICENSE OF [facility] Sennosides (Senokot) 17.2 mg PO Q12H PRN PRN Reason: Moderate Constipation Sodium Chloride (Ns Flush) 2 ml IV.FLUSH PRN PRN PRN Reason: FLUSH AFTER USING IV ACCESS Tamsulosin HCl (Flomax) 0.4 mg PO [facility] Last Admin: 04/28/18 20:09 Dose: 0.4 mg Trihexyphenidyl HCl (Artane) 2 mg PO DAILY ON LICENSE OF [facility] Allergies Allergy/AdvReac Type Severity Reaction Status Date / Time lithium AdvReac Severe CAUSED Verified 04/28/18 16:46 DECREASED RENAL FUNCTION Home Medications Medication Instructions Recorded Confirmed Type amoxicillin-pot clavulanate 1 tab PO BID 04/28/18 04/28/18 History [Augmentin] atorvastatin 10 mg PO DAILY 04/28/18 04/28/18 History docusate sodium 50 mg PO DAILY 04/28/18 04/28/18 History ferrous sulfate 325 mg PO DAILY 04/28/18 04/28/18 History lorazepam [Ativan] 0.25 mg PO DAILY 04/28/18 04/28/18 History quetiapine [Seroquel XR] 200 mg PO QPM 04/28/18 04/28/18 History trihexyphenidyl 2 mg PO DAILY 04/28/18 04/28/18 History Advance Directives Ethical and Legal Issues: Per [place] statutes, in the absence of written advanced directives healthcare proxy decision making would fall to the patient's mother. She is currently making decisions with the support of daughter, Cristela. Physical Exam Vital Signs: Vital Signs - 24 hr 04/28/18 16:43 04/28/18 20:22 04/28/18 21:07 Temperature Pulse Rate 103 H 101 H 104 H Respiratory Rate 20 16 Blood Pressure 135/76 121/58 L Pulse Oximetry 100 97 04/29/18 00:00 04/29/18 04:00 04/29/18 07:37 Temperature 98.8 F 97.7 F 97.6 F Pulse Rate 104 H 105 H 104 H Respiratory Rate 20 23 20 Blood Pressure 127/62 121/57 L 121/60 Pulse Oximetry 104 H 99 97 I&O: Intake & Output 04/27/18 04/28/18 04/29/18 04/30/18 06:59 06:59 06:59 06:59 Intake Total 1340 / 1340 Output Total 2300 / 2300 Balance -960 / -960 Weight 113.398 kg Physical Exam: CONSTITUTIONAL/GENERAL: This is an adequately nourished patient, in no apparent distress. TUBES/LINES/DRAINS: SKIN: No wounds seen anteriorly. Not diaphoretic. HEAD: Atraumatic. Normocephalic. EYES: Pupils equal and round and reactive. No scleral icterus. No injection or drainage. Fundi not examined. ENT: Hearing grossly normal. Nose without bleeding or purulent drainage. NECK: Trachea midline. CARDIOVASCULAR: Generalized pallor. Trace edema RESPIRATORY/CHEST: Symmetric, unlabored respirations. No accessory muscle use GASTROINTESTINAL: Abdomen soft, nondistended. GENITOURINARY: Without palpable bladder distension. MUSCULOSKELETAL: Extremities without clubbing or cyanosis. Trace edema. LYMPHATICS: No palpable cervical or supraclavicular adenopathy. NEUROLOGICAL: Answering questions. Able to make needs known moves all extremities. PSYCHIATRIC: Flat affect. Does not make eye contact. Diagnostic Tests Laboratory: Laboratory Results - last 72 hr 04/28/18 04/28/18 04/28/18 16:51 16:51 16:51 WBC 9.3 RBC 2.94 L Hgb 9.1 L Hct 27.4 L MCV 93.2 MCH 31.0 MCHC 33.2 RDW 15.0 Plt Count 103 L MPV 10.2 Neut % (Auto) 85.1 H Lymph % (Auto) 7.9 L [place] % (Auto) 6.4 Eos % (Auto) 0.5 Baso % (Auto) 0.1 Neut # (Auto) 7.9 H Lymph # (Auto) 0.7 L [place] # (Auto) 0.6 Eos # (Auto) 0.0 Baso # (Auto) 0.0 WBC Differential . Differential Comment Auto diff final Sodium 143 Potassium 5.5 H Chloride 121 H Carbon Dioxide 12.4 L Anion Gap 10 BUN 81 H Creatinine 5.34 H Estimated GFR 11 L POC Glucose Random Glucose 155 H Calcium 8.4 L Magnesium 1.9 Total Bilirubin 0.2 AST 25 ALT 29 Alkaline Phosphatase 170 H Troponin I 0.03 Total Protein 7.3 Albumin 3.0 L TSH Urine Color Yellow Urine Clarity Cloudy H Urine pH 5.0 Ur Specific [place] 1.008 Urine Protein 30 H Urine Glucose (UA) 50 Urine Ketones Negative Urine Occult Blood Small H Urine Nitrate Negative Urine Bilirubin Negative Urine Urobilinogen Less than 2 Ur Leukocyte Esterase Negative Urine RBC 1 Urine WBC 1 Ur Transition Epith Cell 1 Amorphous Sediment Rare H Urine Bacteria Occasional H Micro UA Comment Cath-culture ind Ur Microscopic Review Not Reportable Urine Culture Comments Cath-cult indicated 04/28/18 04/28/18 04/28/18 19:16 20:32 20:56 WBC RBC Hgb Hct MCV MCH MCHC RDW Plt Count MPV Neut % (Auto) Lymph % (Auto) [place] % (Auto) Eos % (Auto) Baso % (Auto) Neut # (Auto) Lymph # (Auto) [place] # (Auto) Eos # (Auto) Baso # (Auto) WBC Differential Differential Comment Sodium Potassium 5.1 Chloride Carbon Dioxide Anion Gap BUN Creatinine Estimated GFR POC Glucose 37 L* 154 H Random Glucose Calcium Magnesium Total Bilirubin AST ALT Alkaline Phosphatase Troponin I Total Protein Albumin TSH Urine Color Urine Clarity Urine pH Ur Specific [place] Urine Protein Urine Glucose (UA) Urine Ketones Urine Occult Blood Urine Nitrate Urine Bilirubin Urine Urobilinogen Ur Leukocyte Esterase Urine RBC Urine WBC Ur Transition Epith Cell Amorphous Sediment Urine Bacteria Micro UA Comment Ur Microscopic Review Urine Culture Comments 04/29/18 04/29/18 04/29/18 02:04 02:19 06:34 WBC 7.6 RBC 2.97 L Hgb 9.2 L Hct 27.3 L MCV 91.9 MCH 30.9 MCHC 33.6 RDW 14.7 Plt Count 120 L MPV 10.5 Neut % (Auto) Lymph % (Auto) [place] % (Auto) Eos % (Auto) Baso % (Auto) Neut # (Auto) Lymph # (Auto) [place] # (Auto) Eos # (Auto) Baso # (Auto) WBC Differential Differential Comment Sodium Potassium Chloride Carbon Dioxide Anion Gap BUN Creatinine Estimated GFR POC Glucose 38 L* 201 H Random Glucose Calcium Magnesium Total Bilirubin AST ALT Alkaline Phosphatase Troponin I Total Protein Albumin TSH Urine Color Urine Clarity Urine pH Ur Specific [place] Urine Protein Urine Glucose (UA) Urine Ketones Urine Occult Blood Urine Nitrate Urine Bilirubin Urine Urobilinogen Ur Leukocyte Esterase Urine RBC Urine WBC Ur Transition Epith Cell Amorphous Sediment Urine Bacteria Micro UA Comment Ur Microscopic Review Urine Culture Comments 04/29/18 04/29/18 04/29/18 06:34 07:58 08:12 WBC RBC Hgb Hct MCV MCH MCHC RDW Plt Count MPV Neut % (Auto) Lymph % (Auto) [place] % (Auto) Eos % (Auto) Baso % (Auto) Neut # (Auto) Lymph # (Auto) [place] # (Auto) Eos # (Auto) Baso # (Auto) WBC Differential Differential Comment Sodium 148 H Potassium 5.4 H Chloride 127 H Carbon Dioxide 12.9 L Anion Gap 8 BUN 75 H Creatinine 5.15 H Estimated GFR 11 L POC Glucose 41 L* 223 H Random Glucose 30 L* D Calcium 8.7 Magnesium Total Bilirubin AST ALT Alkaline Phosphatase Troponin I Total Protein Albumin TSH 0.619 Urine Color Urine Clarity Urine pH Ur Specific [place] Urine Protein Urine Glucose (UA) Urine Ketones Urine Occult Blood Urine Nitrate Urine Bilirubin Urine Urobilinogen Ur Leukocyte Esterase Urine RBC Urine WBC Ur Transition Epith Cell Amorphous Sediment Urine Bacteria Micro UA Comment Ur Microscopic Review Urine Culture Comments 04/29/18 09:56 WBC RBC Hgb Hct MCV MCH MCHC RDW Plt Count MPV Neut % (Auto) Lymph % (Auto) [place] % (Auto) Eos % (Auto) Baso % (Auto) Neut # (Auto) Lymph # (Auto) [place] # (Auto) Eos # (Auto) Baso # (Auto) WBC Differential Differential Comment Sodium Potassium Chloride Carbon Dioxide Anion Gap BUN Creatinine Estimated GFR POC Glucose 115 H Random Glucose Calcium Magnesium Total Bilirubin AST ALT Alkaline Phosphatase Troponin I Total Protein Albumin TSH Urine Color Urine Clarity Urine pH Ur Specific [place] Urine Protein Urine Glucose (UA) Urine Ketones Urine Occult Blood Urine Nitrate Urine Bilirubin Urine Urobilinogen Ur Leukocyte Esterase Urine RBC Urine WBC Ur Transition Epith Cell Amorphous Sediment Urine Bacteria Micro UA Comment Ur Microscopic Review Urine Culture Comments Result Diagrams: 04/29/18 06:34 04/29/18 06:34 Microbiology: Microbiology 04/28/18 16:51 Catheterized Urine Urine Culture - Preliminary No growth in 24 hours Imaging: Head CT 04/28/18 16:42 CONCLUSION: 1. Stable mild atrophy without acute intracranial abnormality. . Chest X-Ray 04/28/18 17:53 CONCLUSION: 1. Motion degraded exam. 2. Otherwise, no acute abnormality. Abdomen X-Ray 04/29/18 00:00 CONCLUSION: 1. Stippled calcifications overlying the region of the pancreas suggestive of chronic pancreatitis. 2. Nonspecific bowel gas pattern with stool throughout the colon. Abdomen/Bladder Ultrasound 04/29/18 00:00 CONCLUSION: 1. Echogenic kidneys consistent with medical renal disease. 2. No sonographic evidence for significant obstructive uropathy. Head MRI 04/29/18 07:10 CONCLUSION: 1. No acute findings. No recent infarct. Mild chronic white matter ischemic changes. Patient/Family Conference Present at Family Conference: Met with patient at bedside. Spoke to patient's sister, Cristela, via telephone Family Conference Location: Bedside, Telephone Issues Discussed: * Palliative care role, purpose, approach * Additional medical, psychosocial, and spiritual history * Patients general health, functional status, and cognitive changes in the months leading up to the current hospitalization * Patient/family understanding of the current medical problems * Patient/family understanding of prognosis * Patients goals of care as best understood from advance directives and/or conversations and/or values * Current medical treatment options and benefits/burdens of those options * Likely scenarios comparing ongoing aggressive care with a transition to comfort measures only * Questions answered to the best of my ability * Palliative care contact information provided Assessment and Plan Pertinent Non-Medical Issues: Psychosocial: Patient was born in [place]. Patient has 4 siblings. He graduated from [employer] and completed 1-1/2 years of college at [employer]. He was never and has no children. His father from throat cancer in 1990. Patient has a history of paranoid schizophrenia, anxiety and depression. He has had multiple psychiatric hospitalizations. He currently lives in a long-term care facility. Spiritual: Raised Scientologist Legal: Per [place] statutes, in the absence of written advanced directives healthcare proxy decision making would fall to the patient's mother. Ethical issues impacting care: Important Contacts: Lea Brantley, mother: [phone] Varsha Mallory, sister: [phone] Prognosis: Patient is a 67-year-old with a long history of mental illness. He is currently hospitalized with acute kidney insufficiency, hyperkalemia, UTI and confusion. Patient has a diagnosis of paranoid schizophrenia. He has been intermittently agitated during this hospitalization, pulling out his IV this morning. Psychiatry was consulted to determine capacity for medical decision- making. Should the patient's kidney disease deteriorate to the point of requiring dialysis, patient would not be an ideal candidate for dialysis Code Status: No Code DNR Plan: * NO CODE * Community DNR can be found in patient's EMR; copy was also faxed from the facility where the patient resides. * Psychiatry was consulted to determine capacity for medical decision making * Decision making: Per [place] statutes, in the absence of written advanced directives healthcare proxy decision making would fall to the patient's mother. * Sister, Cristela, reports she recently filled out health care proxy paperwork with [facility]. Nancy (Palliative [facility]TER) left a message at [facility] requesting a copy of this document. Should the patient's mother opt out of medical decision making, this role would fall to majority of patient's siblings. Cristela tells me all family is aware of Mr. Brantley's medical condition and hospitalization. She is going to have them contact Palliative [facility] CUTTER to determine if they wish to participate in medical decision making. Cristela is willing to serve in this role supported by her mother and siblings. * Attempted to reach patient's mother via telephone, unable to leave a message. Spoke to patient's sister, Cristela, who will be arriving in [place] later this evening. Update provided on patient's medical condition. Tentative family meeting with palliative care tomorrow 04/30/2018. * Palliative care contact information was provided to the patient sister. * Symptom managed -altered mental status: Patient has a long history of mental illness requiring multiple psychiatric hospitalizations. He has a diagnosis of paranoid schizophrenia. Patient is unable to live alone and resides at [facility]. Patient pulled out his IV this morning. Liu catheter was not left in place because of concerns that the patient may pull it out. Psychiatry was consulted to determine capacity for medical decision making as well as recommendations in managing underlying mental illness. * Palliative care will continue to follow this patient throughout his hospitalization to establish trust, assist with symptom management and clarification of medical treatment goals. Appreciation Thank you for the opportunity to participate in the care of Papa Brantley. Attestation Attestation: To help prompt me to consider important information that might be impacting today's encounter and assessment, information from prior notes written by myself or my colleagues may have been "brought forward" into today's note. My signature on this note, however, is an attestation that I personally performed the exam, history, and/or decision-making noted today, and, unless otherwise indicated, the interactions with patient, family, and staff as well as the review of records all occurred today. I also attest that the listed assessment and stated plan reflect my best clinical judgment today based on the combination of historical information, prior notes, and today's exam/ interactions. When time spent is documented, it refers only to time spent today by the signer, or if indicated, combined time spent today by collaborating physician/nurse practitioner.
--- NOTE | 2018-04-29 11:13 | US ---
EXAM DATE: 04/29/2018 12:00 AM EDT AGE/SEX: 67 years / Male INDICATIONS: Increased Bun and Creatinine. CLINICAL DATA: This is the patient's initial encounter. Patient reports that signs and symptoms have been present for 1 day and indicates a pain score of 2/10. MEDICAL/SURGICAL HISTORY: . Diabetes. GERD. Hyperlipidemia. HTN. Hypothyroid. Parkinsonism . Schizophrenia. None. [place] [facility] [place], 04/19/2013. . MEASUREMENTS: Right Kidney:__12.4 x 5.8 x 7.5 cm Left Kidney:__10.8 x 6.9 x 7.2 cm FINDINGS: Right Kidney: Echogenic cortex without hydronephrosis or significant focal mass. Left Kidney: Echogenic cortex without hydronephrosis or significant focal mass. Bladder: Within normal limits given the degree of distension. Other: None. CONCLUSION: 1. Echogenic kidneys consistent with medical renal disease. 2. No sonographic evidence for significant obstructive uropathy. Electronically signed by: Massimo Nieto MD 04/29/2018 11:12 AM EDT
--- NOTE | 2018-04-29 12:05 | P.PNPAL ---
Palliative care consulted to assist with goals of medical treatment. Patient was seen during dual visit with NECKTIE TURNER [facility] T[facility]. He is alert, confused and difficult to understand. Slightly agitated and does not want to be bothered. In follow-up, attempted to contact patient's mother phone just rings cant leave a message. Spoke with patient's sister, Varsha Mallory [phone]. She tells me their mother is very hard of hearing and does not talk on the phone much because of this. Also travels during the day delivered meals on wheels and does not carry a cell phone. Varsha reports she received a call from [facility] NECKTIE TURNER yesterday with concern regarding patient's medical condition. Reports Mr. Brantley was confused, not talking, trouble breathing and not eating/drinking much. Staff became worried about him so they elected to have him sent to the ER. Varsha also reports she recently filled out health care proxy paperwork with [facility]. Message left to obtain a copy. Explained per [place] Statutes, medical decision making would fall to patient's mother. Should she opt out then it would fall to majority of patient's siblings. Varsha tells me all family is aware of Mr. Brantley's medical condition and hospitalization. She is going to have them contact me to determine if they wish to participate in medical decision making. Varsha is willing to serve in this role supported by her mother and siblings. Varsha is aware patient has "severe kidney disease" and is approaching a dialysis decision. This to be further explored with palliative NECKTIE TURNER. Varsha indicates Mr. Brantley is blind and has declined cataract surgery many times including one recent attempt recently. Also informed her of psychiatry evaluation consultation. She is appreciative of this consultation due to patient 's underlying mental illness and diagnoses. Gently discussed Community DNR/Code Status. Varsha states she has not made this decision herself but understands there is a community DNR order signed by their mother that was sent from the facility. This conversation to be further explored with palliative NECKTIE TURNER as well. See full consultation for additional information.
[2018-04-29] MEDS: LORazepam 0.5 MG Tablet PO SCH ×2 (14:09→14:58)
--- NOTE | 2018-04-29 15:50 | XR ---
EXAM DATE: 04/29/2018 12:00 AM EDT AGE/SEX: 67 years / Male INDICATIONS: MRI clearance. CLINICAL DATA: This is the patient's initial encounter. Patient reports that signs and symptoms have been present for 1 day and indicates a pain score of Nonresponsive. MEDICAL/SURGICAL HISTORY: Non-responsive. Non-responsive. COMPAR[place]: [facility] [place], 04/23/[place]. . FINDINGS: The abdominal bowel gas pattern is nonspecific. There is stool throughout the colon. No abnormal mas ses, calcifications, or organomegaly is seen. There are degenerative changes involving the lumbar spi ne. The lung bases are grossly clear. No radiopaque foreign bodies. There are some stippled calcifica tions overlying the region of the pancreas.. CONCLUSION: 1. Stippled calcifications overlying the region of the pancreas suggestive of chronic pancreatitis. 2. Nonspecific bowel gas pattern with stool throughout the colon. Electronically signed by: Pedro Higgins MD 04/29/2018 3:49 PM EDT
--- NOTE | 2018-04-29 16:45 | MR ---
EXAM DATE: 04/29/2018 3:50 PM EDT AGE/SEX: 67 years / Male INDICATIONS: . Right arm weakness for one day. CLINICAL DATA: This is the patient's initial encounter. Patient reports that signs and symptoms have been present for 1 day and indicates a pain score of 5/10. MEDICAL/SURGICAL HISTORY: None. None. COMPARISON: No prior exams available for comparison. TECHNIQUE: Multiplanar, multisequence examination of the brain was performed without contrast. FINDINGS: No intracranial mass or midline shift. No hydrocephalus. Mild chronic ischemic changes in the periven tricular white matter. No evidence for recent infarction. No sellar mass. No abnormal extra-axial flu id collections. CONCLUSION: 1. No acute findings. No recent infarct. Mild chronic white matter ischemic changes. Electronically signed by: Manuelito Isbell MD 04/29/2018 4:44 PM EDT
--- NOTE | 2018-04-29 17:06 | ECG ---
Date Performed: 04/28/2018 Time Performed: 17:32:07 PTAGE: 67 years EKG: Sinus rhythm WITH FIRST DEGREE AV BLOCK LOW QRS VOLTAGE IN PRECORDIAL LEADS INCOMPLETE RIGHT BUNDLE BRANCH BLOCK LEFT ANTERIOR FASCICULAR BLOCK ABNORMAL ECG PREVIOUS TRACING : 04/10/2013 16.30 Compared to previous tracing, there has been a leftward home ft in the axis. Previously noted lateral ST segment depression is no longer evident. DOCTOR: Kristen Soares Interpretating Date/Time 04/29/2018 17:05:00
[2018-04-29] MEDS: Sodium Bicarbonate 8.4% Inj 50 MEQ in Dextrose 5%/NaCl 0.45% Inj 950 ML IV.CONT SCH (18:17)
[2018-04-30] MEDS: Sodium Bicarbonate 8.4% Inj 50 MEQ in Dextrose 5%/NaCl 0.45% Inj 950 ML IV.CONT SCH ×3 (05:31→16:47)
[2018-04-30] MEDS: LORazepam 0.5 MG Tablet PO SCH (09:19)
[2018-04-30] MEDS: Insulin NovoLOG Aspart Correctional Sugar Inj SQ SCH ×4 (09:25→21:12)
--- NOTE | 2018-04-30 09:52 | P.PNFP ---
Subjective Interval history: refusing to take po, refusing care, state he just wants to be left alone and get out of the hospital. not interested in pursuing workups Results - Labs Result diagrams: 04/29/18 06:34 04/29/18 06:34 Abnormal lab results 04/29/18 04/29/18 04/29/18 Range/Units 09:56 17:30 21:35 POC Glucose 115 H 158 H 182 H (68-110) mg/dl 04/30/18 04/30/18 Range/Units 00:01 07:34 POC Glucose 195 H 214 H (68-110) mg/dl - Imaging Impressions Abdomen X-Ray 04/29/18 00:00 CONCLUSION: 1. Stippled calcifications overlying the region of the pancreas suggestive of chronic pancreatitis. 2. Nonspecific bowel gas pattern with stool throughout the colon. Abdomen/Bladder Ultrasound 04/29/18 00:00 CONCLUSION: 1. Echogenic kidneys consistent with medical renal disease. 2. No sonographic evidence for significant obstructive uropathy. Head MRI 04/29/18 07:10 CONCLUSION: 1. No acute findings. No recent infarct. Mild chronic white matter ischemic changes. Physical Exam Vital signs: Vital Signs 04/29/18 12:00 04/29/18 16:00 04/29/18 20:00 Temperature 98.3 F 98.9 F 98.3 F Pulse Rate 110 H 108 H 113 H Respiratory Rate 20 24 16 Blood Pressure 119/65 128/72 137/65 Pulse Oximetry 94 L 95 98 04/30/18 00:00 04/30/18 04:00 04/30/18 08:00 Temperature 97.7 F 98.2 F Pulse Rate 107 H 105 H 101 H Respiratory Rate 16 16 Blood Pressure 123/64 105/63 Pulse Oximetry 97 96 Intake & Output 04/29/18 04/30/18 04/30/18 18:59 06:59 18:59 Intake Total 800 / 800 240 / 240 Output Total 450 / 450 Balance 350 / 350 240 / 240 Intake: IV 800 / 800 NS Inj 1,000 ML @ 70 mls/hr IV. 800 / 800 CONT .[id number] [facility] Rx#:[id number] Oral 240 / 240 Output: Urine Amount (Catheter) 450 / 450 Straight 450 / 450 Other: # Incontinent Voids 1 Date of Last Bowel Movement 04/30/18 # Bowel Movements 1 - Constitutional no acute distress - Routine HEENT Exam Head: Present: normocephalic ENT: Present: mucous membranes moist - Routine Neck Exam Present: normal carotid upstroke, trachea midline - Routine Respiratory Exam Present: CTA bilaterally, diminished air movement - Routine Cardiovascular Exam Present: RRR, S1, S2 - Routine Abdominal Exam Present: soft, normoactive bowel sounds - Routine Extremities Exam Present: edema, full ROM - Routine Skin Exam Present: intact - Routine Neurological Exam Present: oriented X3 - Detailed Neurological Exam: Coma Scale Eye Opening: Spontaneous - Routine Psychiatric Exam Present: normal thought process, cooperative - Urinary Catheter Management Indwelling Urethral Catheter Cath placed during this visit: yes, but has since been removed by the nurse Urethral indwelling: No Reason for continuing: Decision to DC catheter Insertion date: 04/28/18 Insertion time: 16:45 Removal date: 04/28/18 Removal time: 18:31 Straight Cath placed during this visit: no Assessment and Plan - Assessment (1) Acute kidney injury Code(s): N17.9 - Acute kidney failure, unspecified Status: Acute Plan: hospice consult as refusing care and IV lines. pt asking to discharge. see orders please. (2) Chronic kidney disease Code(s): N18.9 - Chronic kidney disease, unspecified Status: Acute (3) Urinary tract infection Code(s): N39.0 - Urinary tract infection, site not specified Status: Acute (4) Diabetes Code(s): E11.9 - Type 2 diabetes mellitus without complications Status: Acute (5) Schizo NEC, chrn/exacerb Code(s): F20.89 - Other schizophrenia Status: Acute (6) Dehydration with hypernatremia Code(s): E87.0 - Hyperosmolality and hypernatremia Status: Acute (4) Diabetes Qualifiers: Diabetes mellitus type: type 2 Diabetes mellitus complication status: with kidney complications
--- NOTE | 2018-04-30 14:32 | P.CONPSY ---
Provisional Diagnosis Admission Date: April 28, 2018 18:42 [place].: Schizophrenia History of Present Illness Service: ER Primary Care Provider: Eloy Boogie MD Chief Complaint: AMS History of Present Illness: The patient is a 67-year-old man, domiciled in a residential facility , single, supported by 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 He presents to the ER with altered mental status. As outpatient he has recently exhibited an increase in his creatinine level to 3.15 , his compliance with treatment for this has been poor due to his psychiatric state. He lives at an assisted living facility, but care there has been inadequate to assist with his needs. He presents today with creatinine above 5.0, confusion, urinary tract infection. Staff complained of right arm weakness. Patient is a very poor historian, unable to relay a story of any sort. ER staff introduced a urinary catheter which produced 1500 cc of urine over 2 hours. This seems to indicate that patient has a urinary outflow obstruction due to most likely an enlarged prostate. The patient has being oppositional, at times refusing to cooperate and to take medications, he was consulted to psychiatry to address his decision-making capacity. My psychiatric evaluation the patient initially irritable, oppositional, but states that he feels fine. He says that he does not want to be here, he wants to go back home. However, the patient is unable to tell me the reason for his decision. The patient does not know the reason he is in the hospital. He is oriented in place, just partially oriented in time. Patient does not seem to be insightful about medical and psychiatric conditions, continue requesting to be discharge but does not give me a rational reason for this. During the evaluation the patient becomes quite irritable and oppositional multiple times refusing to talk, but he is usually sensitive to redirection. PMFSH - History History Provided By: Medical Record - Medical History Medical History: Medical History (Last Updated 04/29/18 @ 10:14 by BRADY Willingham) AV block Depression Diabetes GERD (gastroesophageal reflux disease) Hyperlipidemia Hypertension Hypothyroid Muscle weakness (generalized) Parkinsonism due to drugs Schizophrenia Thrombocytopenia - Surgical History Surgical History: Surgical History (Last Updated 04/29/18 @ 10:14 by BRADY Willingham) History of inguinal hernia repair - Family History Family History: Family History (Last Updated 04/29/18 @ 10:15 by BRADY Willingham) Grandparent No problems noted. Father ETOH abuse Throat cancer Other Type 2 diabetes mellitus - Tobacco History Second Hand Smoke Exposure: No Tobacco Use In Past 30 Days: No (UNKNOWN) Smoking Status: Unknown if ever smoked - Alcohol History How Often Do You Have a Drink Containing Alcohol: Unable to Obtain - Substance Use History Substance History: Unable to Obtain - Travel History Recent Travel in the [place] Within the Last 8 Weeks: No Recent Travel Out of the Country Within the Last 8 Weeks: No - Immunization History Tetanus Immunization: Unable to Assess Medications and Allergies Active Medications: Active Medications Acetaminophen (Tylenol) 650 mg PO Q4H PRN PRN Reason: Temp > 100.4 Dextrose (D50w Vial) 50 ml IV.PUSH UNSCH PRN PRN Reason: PER HYPOGLYCEMIA PROTOCOL Last Admin: 04/29/18 08:04 Dose: 50 ml Glucagon (Glucagon Inj) 1 mg OTHER PRN PRN PRN Reason: for Hypoglycemia Protocol Sodium Chloride (Ns Inj) 1,000 mls @ 0 mls/hr IV.SIG BOLUS [facility] Last Infusion: 04/28/18 19:01 Dose: Infused Ceftriaxone Sodium 1,000 mg/ (Sodium Chloride) 100 mls @ 200 mls/hr IV.SIG Q24H [facility] Last Admin: 04/30/18 05:31 Dose: Not Given Sodium Bicarbonate 50 meq/ (Dextrose/Sodium Chloride) 1,000 mls @ 100 mls/hr IV.CONT .Q10H [facility] Last Admin: 04/30/18 06:11 Dose: Not Given Insulin Aspart (Novolog Insulin Correctional Sugar Inj) 0 unit SQ ACHS [facility]; Protocol Last Admin: 04/30/18 13:11 Dose: 3 unit Lorazepam (Ativan) 0.25 mg PO DAILY [facility] Last Admin: 04/30/18 09:19 Dose: 0.25 mg Miscellaneous (Pill Splitter) 1 each OTHER UNSCH [facility] Ondansetron HCl (Zofran Inj) 4 mg IV.PUSH Q6H PRN PRN Reason: NAUSEA OR VOMITING Quetiapine Fumarate (Seroquel) 200 mg PO QPM [facility] Last Admin: 04/29/18 23:50 Dose: Not Given Sennosides (Senokot) 17.2 mg PO Q12H PRN PRN Reason: Moderate Constipation Sodium Chloride (Ns Flush) 2 ml IV.FLUSH PRN PRN PRN Reason: FLUSH AFTER USING IV ACCESS Tamsulosin HCl (Flomax) 0.4 mg PO HS [facility] Last Admin: 04/29/18 23:50 Dose: Not Given Trihexyphenidyl HCl (Artane) 2 mg PO DAILY [facility] Last Admin: 04/30/18 09:19 Dose: 2 mg Allergies Allergy/AdvReac Type Severity Reaction Status Date / Time lithium AdvReac Severe CAUSED Verified 04/28/18 16:46 DECREASED RENAL FUNCTION Home Medications Medication Instructions Recorded Confirmed Type amoxicillin-pot clavulanate 1 tab PO BID 04/28/18 04/28/18 History [Augmentin] atorvastatin 10 mg PO DAILY 04/28/18 04/28/18 History docusate sodium 50 mg PO DAILY 04/28/18 04/28/18 History ferrous sulfate 325 mg PO DAILY 04/28/18 04/28/18 History lorazepam [Ativan] 0.25 mg PO DAILY 04/28/18 04/28/18 History quetiapine [Seroquel XR] 200 mg PO QPM 04/28/18 04/28/18 History trihexyphenidyl 2 mg PO DAILY 04/28/18 04/28/18 History Exam Vital signs: Vital Signs 04/29/18 16:00 04/29/18 20:00 04/30/18 00:00 Temperature 98.9 F 98.3 F 97.7 F Pulse Rate 108 H 113 H 107 H Respiratory Rate 24 16 16 Blood Pressure 128/72 137/65 123/64 Pulse Oximetry 95 98 97 04/30/18 04:00 04/30/18 08:00 04/30/18 11:25 Temperature 98.2 F 98.1 F Pulse Rate 105 H 101 H 103 H Respiratory Rate 16 18 Blood Pressure 105/63 109/71 Pulse Oximetry 96 100 Intake & Output 04/29/18 04/30/18 04/30/18 18:59 06:59 18:59 Intake Total 800 / 800 240 / 240 Output Total 450 / 450 Balance 350 / 350 240 / 240 Intake: IV 800 / 800 NS Inj 1,000 ML @ 70 mls/hr IV. 800 / 800 CONT .[id number] [facility] Rx#:[id number] Oral 240 / 240 Output: Urine Amount (Catheter) 450 / 450 Straight 450 / 450 Other: # Incontinent Voids 1 Date of Last Bowel Movement 04/30/18 # Bowel Movements 1 Mental Status Examination Appearance: Appropriate Consciousness: Alert Orientation: x4, Person, Place Motor Activity: Normal gait Speech: Unremarkable Language: Adequate Fund of Knowledge: Adequate Attention and Concentration: Adequate Memory: Unremarkable Mood: Appropriate Affect: Appropriate Thought Process & Associations: Intact Thought Content: Appropriate Hallucination Type: None Delusion Type: None Suicidal Ideation: No Suicidal Plan: No Suicidal Intention: No Homicidal Ideation: No Homicidal Plan: No Homicidal Intention: No Insight: Adequate Judgment: Adequate Assessment and Plan - Assessment (1) Schizophrenia Code(s): F20.9 - Schizophrenia, unspecified Status: Acute - Plan Plan: On psychiatric evaluation today the patient presents oppositional, irritable, but usually reassured about and sensitive to redirection. The patient is refusing to stay in the hospital, requesting to be discharged back home, but he is unable to express a rational recent for this, and he is able to even verbalize an understanding and appreciation of his medical and psychiatric conditions. Patient is oriented in place, but disoriented in time. At times seems to be confused. Patient does not have decision-making capacity to refuse treatment or to leave AMA at this moment. Continue Seroquel 200 mg at bedtime. I do not see any reason for psychiatric admission at this moment. I will follow-up. Justification for Continued Inpatient Stay: No admission is indicated.
[2018-04-30 15:36] LABS: Baso % (Auto) 0.3 % (0.0-2.0); Eos # (Auto) 0.1 th/mm3 (0.0-0.4); Hematocrit 27.3 % (39.0-51.0); Lymph # (Auto) 0.8 th/mm3 (1.0-4.8); Mean Corpuscular HGB Conc 32.9 % (32.0-36.0); Mean Corpuscular Hemoglobin 30.6 pg (27.0-34.0); Mono # (Auto) 0.5 th/mm3 (0.0-0.9); Mono % (Auto) 6.6 % (0.0-8.0); Neut # (Auto) 6.1 th/mm3 (1.8-7.7); Neut % (Auto) 81.1 % (16.0-70.0); Platelet Count 117 th/mm3 (150-450); Red Blood Count 2.94 mil/mm3 (4.50-5.90); Red Cell Distribution Width 15.6 % (11.6-17.2); White Blood Count 7.5 th/mm3 (4.0-11.0)
[2018-04-30 16:04] LABS: % Iron Saturation 19.2 % (20-50); Calcium 8.3 mg/dL (8.5-10.1); Carbon Dioxide 14.2 meq/L (21.0-32.0); Phosphorus 7.1 mg/dL (2.5-4.9)
[2018-04-30] MEDS ORDERED: Dextrose 50% in Water 50 ML Vial IV.PUSH ONE (16:25)
--- NOTE | 2018-04-30 16:34 | P.PNNP ---
Subjective Interval history: Remains confused. Unable to do review of system. <Amy Moreno - Last Filed: 04/30/18 16:34> Physical Exam Vital signs: Vital Signs 04/29/18 20:00 04/30/18 00:00 04/30/18 04:00 Temperature 98.3 F 97.7 F 98.2 F Pulse Rate 113 H 107 H 105 H Respiratory Rate 16 16 16 Blood Pressure 137/65 123/64 105/63 Pulse Oximetry 98 97 96 04/30/18 08:00 04/30/18 11:25 Temperature 98.1 F Pulse Rate 101 H 103 H Respiratory Rate 18 Blood Pressure 109/71 Pulse Oximetry 100 Intake & Output 04/29/18 04/30/18 04/30/18 18:59 06:59 18:59 Intake Total 800 / 800 240 / 240 Output Total 450 / 450 Balance 350 / 350 240 / 240 Intake: IV 800 / 800 NS Inj 1,000 ML @ 70 mls/hr IV. 800 / 800 CONT .[id number] [facility] Rx#:[id number] Oral 240 / 240 Output: Urine Amount (Catheter) 450 / 450 Straight 450 / 450 Other: # Incontinent Voids 1 Date of Last Bowel Movement 04/30/18 # Bowel Movements 1 Narrative: GENERAL: Confused and mumbles when asked questions. SKIN: Warm and dry. NECK: Supple, trachea midline. No JVD or lymphadenopathy. CARDIOVASCULAR: Regular rate and rhythm without murmurs, gallops, or rubs. RESPIRATORY: Breath sounds equal bilaterally. No accessory muscle use. GASTROINTESTINAL: Abdomen soft, non-tender, large MUSCULOSKELETAL: No cyanosis, or edema. BACK: Nontender without obvious deformity. No CVA tenderness. - Urinary Catheter Management Indwelling Urethral Catheter Cath placed during this visit: yes, but has since been removed by the nurse Urethral indwelling: No Reason for continuing: Decision to DC catheter Insertion date: 04/28/18 Insertion time: 16:45 Removal date: 04/28/18 Removal time: 18:31 Straight Cath placed during this visit: no <Amy Moreno - Last Filed: 04/30/18 16:34> Vital signs: Vital Signs 04/30/18 20:00 05/01/18 00:00 05/01/18 03:06 Temperature 97.9 F 97.1 F L 97.4 F L Pulse Rate 80 105 H 114 H Respiratory Rate 18 17 17 Blood Pressure 133/60 136/70 115/74 Pulse Oximetry 100 100 94 L 05/01/18 07:11 05/01/18 11:17 05/01/18 16:00 Temperature 98.1 F 97.9 F 98.1 F Pulse Rate 104 H 94 H 69 Respiratory Rate 16 16 16 Blood Pressure 100/59 L 131/62 124/58 L Pulse Oximetry 95 96 99 Intake & Output 05/01/18 05/01/18 05/02/18 06:59 18:59 06:59 Other: Date of Last Bowel Movement 04/30/18 04/30/18 - Urinary Catheter Management Indwelling Urethral Catheter Cath placed during this visit: no Straight Cath placed during this visit: no <Radha Berrios - Last Filed: 05/01/18 19:46> Assessment and Plan - Assessment (1) Acute kidney injury Code(s): N17.9 - Acute kidney failure, unspecified Status: Acute Plan: Acute kidney injury with creatinine noted to be 5.34, potassium 5.5, and HCO3 at 12.4 on day of consult Acute worsening in kidney function could be partially related to obstruction or infection Urinalysis is abnormal with proteinuria. Has chronic kidney disease and per recorders Creatinine of 3.44 on 11/21/17. Plan Avoid nephrotoxins as possible. Continue Flomax Patient may need indwelling catheter if continues to have issues with retention. Patient at risk for pulling on catheter with AMS. Bladder scan and I+O cath as needed. Continue IVF's, D5 1/4 NS with bicarbonate. Potassium level elevated at 6.0, insulin/D50/sodium bicarbonate ordered. Hypernatremia, IVF infusing. Palliative care to meet with family about patient goals. Has advanced chronic kidney disease and if does not improve may need dialysis. (2) Chronic kidney disease Code(s): N18.9 - Chronic kidney disease, unspecified Status: Acute Plan: Has advanced chronic kidney disease stage 4 Most likely from diabetes (3) Urinary tract infection Code(s): N39.0 - Urinary tract infection, site not specified Status: Acute Plan: On antibiotics, culture pending (4) Diabetes Code(s): E11.9 - Type 2 diabetes mellitus without complications Status: Acute Qualifiers: Diabetes mellitus type: type 2 Diabetes mellitus complication status: with kidney complications Plan: Maintain blood sugars between 140 mg/dl to 180 mg/dl <Amy Moreno - Last Filed: 04/30/18 16:34> - Assessment (1) Acute kidney injury Code(s): N17.9 - Acute kidney failure, unspecified Status: Acute Plan: Patient seen and examine, agree with above. Creatinine increase and K now 6.0. Started on IVF with NaHco3, if not better, possible HD, although he is not a good candidate for intermediate project manager Dialysis. (2) Chronic kidney disease Code(s): N18.9 - Chronic kidney disease, unspecified Status: Acute (3) Urinary tract infection Code(s): N39.0 - Urinary tract infection, site not specified Status: Acute (4) Diabetes Code(s): E11.9 - Type 2 diabetes mellitus without complications Status: Acute Qualifiers: Diabetes mellitus type: type 2 Diabetes mellitus complication status: with kidney complications Chronic kidney disease stage: stage 4 (severe) <Radha Berrios - Last Filed: 05/01/18 19:46>
--- NOTE | 2018-04-30 17:26 | P.CONPAL ---
Consult Service: Palliative Care Reason for Consult: a. To assist with evaluation and management of symptoms including: Altered mental status b. To assist medical decision maker(s) with: better understanding of current medical conditions; weighing benefits/burdens of medical treatment options; making medical treatment decisions. Primary Care Provider: Eloy Boogie MD History of Present Illness History of Present Illness: Mr. Brantley is a 67-year-old male patient with a history of paranoid schizophrenia who lives at [facility]. He presented to [place] ED via EMS on with altered mental status with some right-sided weakness in the upper extremity and slurred speech. After being evaluated the patient was admitted for management of acute renal failure, UTI, hyperkalemia and confusion. Follow-up visit for symptom management and clarification of medical treatment goals. Clinical data: * WBC 7.5, hemoglobin 9.0, hematocrit 27.3, platelets 117, neutrophils 81.1% * Sodium: 152, potassium 6.0, chloride 130, carbon dioxide 14.2, glucose 181, calcium 8.3, phosphorus 7.1 * BUN: 79, creatinine 5.52, GFR 10 * Iron: 42, TIBC 218, % saturation 19.2, ferritin 99 * Total protein: 6.7, albumin 3.0 Patient has been refusing PO intake and care. He is stating he just wants to be left alone. Psychiatry was consulted to determine patient's capacity for medical decision-making. Dr. Adhikari evaluated the patient and found that he did not have decision-making capacity to refuse treatment or leave AMA. Palliative care met with the patient's family to discuss medical treatment goals. Patient has advanced kidney disease, and if this does not improve he may need dialysis. Kidney functioning worse today with BUN 79, creatinine 5.52 and GFR 10. Patient's family states the patient would not be accepting or tolerant of such an invasive procedure if it got to that point. They would like to treat the patient's UTI if indicated, otherwise they are leaning toward comfort focused care. The would like to meet with the hospice admission nurse tomorrow 05/01/2018; hospice admissions was notified. [facility] - History History Provided By: Medical Record - Medical History Medical History: Medical History (Last Updated 04/29/18 @ 10:14 by BRADY Willingham) AV block Depression Diabetes GERD (gastroesophageal reflux disease) Hyperlipidemia Hypertension Hypothyroid Muscle weakness (generalized) Parkinsonism due to drugs Schizophrenia Thrombocytopenia - Surgical History Surgical History: Surgical History (Last Updated 04/29/18 @ 10:14 by BRADY Willingham) History of inguinal hernia repair - Family History Family History: Family History (Last Updated 04/29/18 @ 10:15 by BRADY Willingham) Grandparent No problems noted. Father ETOH abuse Throat cancer Other Type 2 diabetes mellitus - Tobacco History Second Hand Smoke Exposure: No Tobacco Use In Past 30 Days: No (UNKNOWN) Smoking Status: Unknown if ever smoked - Alcohol History How Often Do You Have a Drink Containing Alcohol: Unable to Obtain - Substance Use History Substance History: Unable to Obtain - Travel History Recent Travel in the [place] Within the Last 8 Weeks: No Recent Travel Out of the Country Within the Last 8 Weeks: No - Immunization History Tetanus Immunization: Unable to Assess Medications and Allergies Active Medications: Active Medications Acetaminophen (Tylenol) 650 mg PO Q4H PRN PRN Reason: Temp > 100.4 Dextrose (D50w Vial) 50 ml IV.PUSH UNSCH PRN PRN Reason: PER HYPOGLYCEMIA PROTOCOL Last Admin: 04/29/18 08:04 Dose: 50 ml Glucagon (Glucagon Inj) 1 mg OTHER PRN PRN PRN Reason: for Hypoglycemia Protocol Sodium Chloride (Ns Inj) 1,000 mls @ 0 mls/hr IV.SIG BOLUS [facility] Last Infusion: 04/28/18 19:01 Dose: Infused Ceftriaxone Sodium 1,000 mg/ (Sodium Chloride) 100 mls @ 200 mls/hr IV.SIG Q24H PATRICK Last Admin: 04/30/18 05:31 Dose: Not Given Sodium Bicarbonate 50 meq/ (Dextrose/Sodium Chloride) 1,000 mls @ 100 mls/hr IV.CONT .Q10H PATIRCK Insulin Aspart (Novolog Insulin Correctional Sugar Inj) 0 unit SQ ACHS PATRICK; Protocol Last Admin: 04/30/18 13:11 Dose: 3 unit Lorazepam (Ativan) 0.25 mg PO DAILY PATRICK Last Admin: 04/30/18 09:19 Dose: 0.25 mg Miscellaneous (Pill Splitter) 1 each OTHER UNSCH PATRICK Ondansetron HCl (Zofran Inj) 4 mg IV.PUSH Q6H PRN PRN Reason: NAUSEA OR VOMITING Quetiapine Fumarate (Seroquel) 200 mg PO QPM [facility] Last Admin: 04/29/18 23:50 Dose: Not Given Sennosides (Senokot) 17.2 mg PO Q12H PRN PRN Reason: Moderate Constipation Sodium Chloride (Ns Flush) 2 ml IV.FLUSH PRN PRN PRN Reason: FLUSH AFTER USING IV ACCESS Tamsulosin HCl (Flomax) 0.4 mg PO HS [facility] Last Admin: 04/29/18 23:50 Dose: Not Given Trihexyphenidyl HCl (Artane) 2 mg PO DAILY [facility] Last Admin: 04/30/18 09:19 Dose: 2 mg Allergies Allergy/AdvReac Type Severity Reaction Status Date / Time lithium AdvReac Severe CAUSED Verified 04/28/18 16:46 DECREASED RENAL FUNCTION Home Medications Medication Instructions Recorded Confirmed Type amoxicillin-pot clavulanate 1 tab PO BID 04/28/18 04/28/18 History [Augmentin] atorvastatin 10 mg PO DAILY 04/28/18 04/28/18 History docusate sodium 50 mg PO DAILY 04/28/18 04/28/18 History ferrous sulfate 325 mg PO DAILY 04/28/18 04/28/18 History lorazepam [Ativan] 0.25 mg PO DAILY 04/28/18 04/28/18 History quetiapine [Seroquel XR] 200 mg PO QPM 04/28/18 04/28/18 History trihexyphenidyl 2 mg PO DAILY 04/28/18 04/28/18 History Physical Exam Vital Signs: Vital Signs - 24 hr 04/29/18 20:00 04/30/18 00:00 04/30/18 04:00 Temperature 98.3 F 97.7 F 98.2 F Pulse Rate 113 H 107 H 105 H Respiratory Rate 16 16 16 Blood Pressure 137/65 123/64 105/63 Pulse Oximetry 98 97 96 04/30/18 08:00 04/30/18 11:25 04/30/18 16:00 Temperature 98.1 F 98.4 F Pulse Rate 101 H 103 H 92 H Respiratory Rate 18 18 Blood Pressure 109/71 136/67 Pulse Oximetry 100 100 I&O: Intake & Output 04/28/18 04/29/18 04/30/18 05/01/18 06:59 06:59 06:59 06:59 Intake Total 1340 / 1340 1040 / 1040 Output Total 2300 / 2300 450 / 450 Balance -960 / -960 590 / 590 Weight 113.398 kg Physical Exam: CONSTITUTIONAL/GENERAL: This is an adequately nourished patient, in no apparent distress. TUBES/LINES/DRAINS: SKIN: No wounds seen anteriorly. Not diaphoretic. HEAD: Atraumatic. Normocephalic. EYES: Pupils equal and round and reactive. No scleral icterus. No injection or drainage. Fundi not examined. ENT: Hearing grossly normal. Nose without bleeding or purulent drainage. NECK: Trachea midline. CARDIOVASCULAR: Generalized pallor. Trace edema RESPIRATORY/CHEST: Symmetric, unlabored respirations. No accessory muscle use GASTROINTESTINAL: Abdomen soft, nondistended. GENITOURINARY: Without palpable bladder distension. MUSCULOSKELETAL: Extremities without clubbing or cyanosis. Trace edema. LYMPHATICS: No palpable cervical or supraclavicular adenopathy. NEUROLOGICAL: Answering questions. Able to make needs known moves all extremities. PSYCHIATRIC: Flat affect. Does not make eye contact. Diagnostic Tests Laboratory: Laboratory Results - last 72 hr 04/28/18 04/28/18 04/28/18 16:51 16:51 16:51 WBC 9.3 RBC 2.94 L Hgb 9.1 L Hct 27.4 L MCV 93.2 MCH 31.0 MCHC 33.2 RDW 15.0 Plt Count 103 L MPV 10.2 Neut % (Auto) 85.1 H Lymph % (Auto) 7.9 L Leslie % (Auto) 6.4 Eos % (Auto) 0.5 Baso % (Auto) 0.1 Neut # (Auto) 7.9 H Lymph # (Auto) 0.7 L Leslie # (Auto) 0.6 Eos # (Auto) 0.0 Baso # (Auto) 0.0 WBC Differential . Differential Comment Auto diff final Sodium 143 Potassium 5.5 H Chloride 121 H Carbon Dioxide 12.4 L Anion Gap 10 BUN 81 H Creatinine 5.34 H Estimated GFR 11 L POC Glucose Random Glucose 155 H Calcium 8.4 L Phosphorus Magnesium 1.9 Iron TIBC % Saturation Ferritin Total Bilirubin 0.2 AST 25 ALT 29 Alkaline Phosphatase 170 H Troponin I 0.03 Total Protein 7.3 Total Protein (PEP) Albumin 3.0 L Free PSA Total PSA PSA Free/Total Ratio TSH Urine Color Yellow Urine Clarity Cloudy H Urine pH 5.0 Ur Specific [place] 1.008 Urine Protein 30 H Urine Glucose (UA) 50 Urine Ketones Negative Urine Occult Blood Small H Urine Nitrate Negative Urine Bilirubin Negative Urine Urobilinogen Less than 2 Ur Leukocyte Esterase Negative Urine RBC 1 Urine WBC 1 Ur Transition Epith Cell 1 Amorphous Sediment Rare H Urine Bacteria Occasional H Micro UA Comment Cath-culture ind Ur Microscopic Review Not Reportable Urine Culture Comments Cath-cult indicated Urine Osmolality Ur Random Creatinine 04/28/18 04/28/18 04/28/18 19:16 19:16 20:32 WBC RBC Hgb Hct MCV MCH MCHC RDW Plt Count MPV Neut % (Auto) Lymph % (Auto) Leslie % (Auto) Eos % (Auto) Baso % (Auto) Neut # (Auto) Lymph # (Auto) Leslie # (Auto) Eos # (Auto) Baso # (Auto) WBC Differential Differential Comment Sodium Potassium 5.1 Chloride Carbon Dioxide Anion Gap BUN Creatinine Estimated GFR POC Glucose 37 L* Random Glucose Calcium Phosphorus Magnesium Iron TIBC % Saturation Ferritin Total Bilirubin AST ALT Alkaline Phosphatase Troponin I Total Protein Total Protein (PEP) Albumin Free PSA 1.4 Total PSA 3.0 PSA Free/Total Ratio 0 TSH Urine Color Urine Clarity Urine pH Ur Specific [place] Urine Protein Urine Glucose (UA) Urine Ketones Urine Occult Blood Urine Nitrate Urine Bilirubin Urine Urobilinogen Ur Leukocyte Esterase Urine RBC Urine WBC Ur Transition Epith Cell Amorphous Sediment Urine Bacteria Micro UA Comment Ur Microscopic Review Urine Culture Comments Urine Osmolality Ur Random Creatinine 04/28/18 04/29/18 04/29/18 20:56 02:04 02:19 WBC RBC Hgb Hct MCV MCH MCHC RDW Plt Count MPV Neut % (Auto) Lymph % (Auto) Leslie % (Auto) Eos % (Auto) Baso % (Auto) Neut # (Auto) Lymph # (Auto) Leslie # (Auto) Eos # (Auto) Baso # (Auto) WBC Differential Differential Comment Sodium Potassium Chloride Carbon Dioxide Anion Gap BUN Creatinine Estimated GFR POC Glucose 154 H 38 L* 201 H Random Glucose Calcium Phosphorus Magnesium Iron TIBC % Saturation Ferritin Total Bilirubin AST ALT Alkaline Phosphatase Troponin I Total Protein Total Protein (PEP) Albumin Free PSA Total PSA PSA Free/Total Ratio TSH Urine Color Urine Clarity Urine pH Ur Specific [place] Urine Protein Urine Glucose (UA) Urine Ketones Urine Occult Blood Urine Nitrate Urine Bilirubin Urine Urobilinogen Ur Leukocyte Esterase Urine RBC Urine WBC Ur Transition Epith Cell Amorphous Sediment Urine Bacteria Micro UA Comment Ur Microscopic Review Urine Culture Comments Urine Osmolality Ur Random Creatinine 04/29/18 04/29/18 04/29/18 06:34 06:34 07:58 WBC 7.6 RBC 2.97 L Hgb 9.2 L Hct 27.3 L MCV 91.9 MCH 30.9 MCHC 33.6 RDW 14.7 Plt Count 120 L MPV 10.5 Neut % (Auto) Lymph % (Auto) Leslie % (Auto) Eos % (Auto) Baso % (Auto) Neut # (Auto) Lymph # (Auto) Leslie # (Auto) Eos # (Auto) Baso # (Auto) WBC Differential Differential Comment Sodium 148 H Potassium 5.4 H Chloride 127 H Carbon Dioxide 12.9 L Anion Gap 8 BUN 75 H Creatinine 5.15 H Estimated GFR 11 L POC Glucose 41 L* Random Glucose 30 L* D Calcium 8.7 Phosphorus Magnesium Iron TIBC % Saturation Ferritin Total Bilirubin AST ALT Alkaline Phosphatase Troponin I Total Protein Total Protein (PEP) Albumin Free PSA Total PSA PSA Free/Total Ratio TSH 0.619 Urine Color Urine Clarity Urine pH Ur Specific [place] Urine Protein Urine Glucose (UA) Urine Ketones Urine Occult Blood Urine Nitrate Urine Bilirubin Urine Urobilinogen Ur Leukocyte Esterase Urine RBC Urine WBC Ur Transition Epith Cell Amorphous Sediment Urine Bacteria Micro UA Comment Ur Microscopic Review Urine Culture Comments Urine Osmolality Ur Random Creatinine 04/29/18 04/29/18 04/29/18 08:12 09:56 13:05 WBC RBC Hgb Hct MCV MCH MCHC RDW Plt Count MPV Neut % (Auto) Lymph % (Auto) Leslie % (Auto) Eos % (Auto) Baso % (Auto) Neut # (Auto) Lymph # (Auto) Leslie # (Auto) Eos # (Auto) Baso # (Auto) WBC Differential Differential Comment Sodium Potassium Chloride Carbon Dioxide Anion Gap BUN Creatinine Estimated GFR POC Glucose 223 H 115 H 96 Random Glucose Calcium Phosphorus Magnesium Iron TIBC % Saturation Ferritin Total Bilirubin AST ALT Alkaline Phosphatase Troponin I Total Protein Total Protein (PEP) Albumin Free PSA Total PSA PSA Free/Total Ratio TSH Urine Color Urine Clarity Urine pH Ur Specific [place] Urine Protein Urine Glucose (UA) Urine Ketones Urine Occult Blood Urine Nitrate Urine Bilirubin Urine Urobilinogen Ur Leukocyte Esterase Urine RBC Urine WBC Ur Transition Epith Cell Amorphous Sediment Urine Bacteria Micro UA Comment Ur Microscopic Review Urine Culture Comments Urine Osmolality Ur Random Creatinine 04/29/18 04/29/18 04/29/18 14:44 15:15 15:15 WBC RBC Hgb Hct MCV MCH MCHC RDW Plt Count MPV Neut % (Auto) Lymph % (Auto) Leslie % (Auto) Eos % (Auto) Baso % (Auto) Neut # (Auto) Lymph # (Auto) Leslie # (Auto) Eos # (Auto) Baso # (Auto) WBC Differential Differential Comment Sodium Potassium Chloride Carbon Dioxide Anion Gap BUN Creatinine Estimated GFR POC Glucose 85 Random Glucose Calcium Phosphorus Magnesium Iron TIBC % Saturation Ferritin Total Bilirubin AST ALT Alkaline Phosphatase Troponin I Total Protein Total Protein (PEP) Albumin Free PSA Total PSA PSA Free/Total Ratio TSH Urine Color Urine Clarity Urine pH Ur Specific [place] Urine Protein Urine Glucose (UA) Urine Ketones Urine Occult Blood Urine Nitrate Urine Bilirubin Urine Urobilinogen Ur Leukocyte Esterase Urine RBC Urine WBC Ur Transition Epith Cell Amorphous Sediment Urine Bacteria Micro UA Comment Ur Microscopic Review Urine Culture Comments Urine Osmolality 308 Ur Random Creatinine 39 04/29/18 04/29/18 04/29/18 15:33 17:30 21:35 WBC RBC Hgb Hct MCV MCH MCHC RDW Plt Count MPV Neut % (Auto) Lymph % (Auto) Leslie % (Auto) Eos % (Auto) Baso % (Auto) Neut # (Auto) Lymph # (Auto) Leslie # (Auto) Eos # (Auto) Baso # (Auto) WBC Differential Differential Comment Sodium Potassium Chloride Carbon Dioxide Anion Gap BUN Creatinine Estimated GFR POC Glucose 102 158 H 182 H Random Glucose Calcium Phosphorus Magnesium Iron TIBC % Saturation Ferritin Total Bilirubin AST ALT Alkaline Phosphatase Troponin I Total Protein Total Protein (PEP) Albumin Free PSA Total PSA PSA Free/Total Ratio TSH Urine Color Urine Clarity Urine pH Ur Specific [place] Urine Protein Urine Glucose (UA) Urine Ketones Urine Occult Blood Urine Nitrate Urine Bilirubin Urine Urobilinogen Ur Leukocyte Esterase Urine RBC Urine WBC Ur Transition Epith Cell Amorphous Sediment Urine Bacteria Micro UA Comment Ur Microscopic Review Urine Culture Comments Urine Osmolality Ur Random Creatinine 04/30/18 04/30/18 04/30/18 00:01 07:34 12:35 WBC RBC Hgb Hct MCV MCH MCHC RDW Plt Count MPV Neut % (Auto) Lymph % (Auto) Leslie % (Auto) Eos % (Auto) Baso % (Auto) Neut # (Auto) Lymph # (Auto) Leslie # (Auto) Eos # (Auto) Baso # (Auto) WBC Differential Differential Comment Sodium Potassium Chloride Carbon Dioxide Anion Gap BUN Creatinine Estimated GFR POC Glucose 195 H 214 H 241 H Random Glucose Calcium Phosphorus Magnesium Iron TIBC % Saturation Ferritin Total Bilirubin AST ALT Alkaline Phosphatase Troponin I Total Protein Total Protein (PEP) Albumin Free PSA Total PSA PSA Free/Total Ratio TSH Urine Color Urine Clarity Urine pH Ur Specific [place] Urine Protein Urine Glucose (UA) Urine Ketones Urine Occult Blood Urine Nitrate Urine Bilirubin Urine Urobilinogen Ur Leukocyte Esterase Urine RBC Urine WBC Ur Transition Epith Cell Amorphous Sediment Urine Bacteria Micro UA Comment Ur Microscopic Review Urine Culture Comments Urine Osmolality Ur Random Creatinine 04/30/18 04/30/18 15:05 15:05 WBC 7.5 RBC 2.94 L Hgb 9.0 L Hct 27.3 L MCV 93.0 MCH 30.6 MCHC 32.9 RDW 15.6 Plt Count 117 L MPV 10.0 Neut % (Auto) 81.1 H Lymph % (Auto) 10.0 Leslie % (Auto) 6.6 Eos % (Auto) 2.0 Baso % (Auto) 0.3 Neut # (Auto) 6.1 Lymph # (Auto) 0.8 L Leslie # (Auto) 0.5 Eos # (Auto) 0.1 Baso # (Auto) 0.0 WBC Differential . Differential Comment Auto diff final Sodium 152 H Potassium 6.0 H Chloride 130 H Carbon Dioxide 14.2 L Anion Gap 8 BUN 79 H Creatinine 5.52 H Estimated GFR 10 L POC Glucose Random Glucose 182 H D Calcium 8.3 L Phosphorus 7.1 H Magnesium Iron 42 L TIBC 218 L % Saturation 19.2 L Ferritin 99 Total Bilirubin AST ALT Alkaline Phosphatase Troponin I Total Protein Total Protein (PEP) 6.7 Albumin 3.0 L Free PSA Total PSA PSA Free/Total Ratio TSH Urine Color Urine Clarity Urine pH Ur Specific [place] Urine Protein Urine Glucose (UA) Urine Ketones Urine Occult Blood Urine Nitrate Urine Bilirubin Urine Urobilinogen Ur Leukocyte Esterase Urine RBC Urine WBC Ur Transition Epith Cell Amorphous Sediment Urine Bacteria Micro UA Comment Ur Microscopic Review Urine Culture Comments Urine Osmolality Ur Random Creatinine Result Diagrams: 04/30/18 15:05 04/30/18 15:05 Microbiology: Microbiology 04/28/18 16:51 Urine Culture - Final Catheterized Urine No growth in 48 hours Patient/Family Conference Issues Discussed: * Palliative care role, purpose, approach * Additional medical, psychosocial, and spiritual history * Patients general health, functional status, and cognitive changes in the months leading up to the current hospitalization * Patient/family understanding of the current medical problems * Patient/family understanding of prognosis * Patients goals of care as best understood from advance directives and/or conversations and/or values * Current medical treatment options and benefits/burdens of those options * Likely scenarios comparing ongoing aggressive care with a transition to comfort measures only * Questions answered to the best of my ability * Palliative care contact information provided Assessment and Plan Pertinent Non-Medical Issues: Psychosocial: Patient was born in [place]. Patient has 4 siblings. He graduated from [employer] school and completed 1-1/2 years of college at [employer]. He was never and has no children. His father from throat cancer in 1990. Patient has a history of paranoid schizophrenia, anxiety and depression. He has had multiple psychiatric hospitalizations. He currently lives in a long-term care facility. Spiritual: Raised [employer]ism Legal: Per [place] statutes, in the absence of written advanced directives healthcare proxy decision making would fall to the patient's mother. Ethical issues impacting care: Important Contacts: Lea Brantley, mother: [phone] Varsha Mallory, sister: [phone] Prognosis: Patient is a 67-year-old with a long history of mental illness. He is currently hospitalized with acute kidney insufficiency, hyperkalemia, UTI and confusion. Patient has a diagnosis of paranoid schizophrenia. He has been intermittently agitated during this hospitalization, pulling out his IV this morning. Psychiatry was consulted to determine capacity for medical decision- making. Should the patient's kidney disease deteriorate to the point of requiring dialysis, patient would not be an ideal candidate for dialysis Code Status: No Code DNR Plan: * NO CODE * Community DNR can be found in patient's EMR; copy was also faxed from the facility where the patient resides. * Psychiatry was consulted to determine capacity for medical decision making * Decision making: Per [place] statutes, in the absence of written advanced directives healthcare proxy decision making would fall to the patient's mother. * Sister, Cristela, reports she recently filled out health care proxy paperwork with [facility]. Nancy (Palliative PHOTOGRAPHER ASSISTANT) left a message at [facility] requesting a copy of this document. Should the patient's mother opt out of medical decision making, this role would fall to majority of patient's siblings. Cristela tells me all family is aware of Mr. Brantley's medical condition and hospitalization. She is going to have them contact Palliative PHOTOGRAPHER ASSISTANT to determine if they wish to participate in medical decision making. Cristela is willing to serve in this role supported by her mother and siblings. * Attempted to reach patient's mother via telephone, unable to leave a message. Spoke to patient's sister, Cristela, who will be arriving in [place] later this evening. Update provided on patient's medical condition. Tentative family meeting with palliative care tomorrow 04/30/2018. * Palliative care contact information was provided to the patient sister. * Symptom managed -altered mental status: Patient has a long history of mental illness requiring multiple psychiatric hospitalizations. He has a diagnosis of paranoid schizophrenia. Patient is unable to live alone and resides at [facility]. Patient pulled out his IV this morning. Liu catheter was not left in place because of concerns that the patient may pull it out. Psychiatry was consulted to determine capacity for medical decision making as well as recommendations in managing underlying mental illness. * Palliative care will continue to follow this patient throughout his hospitalization to establish trust, assist with symptom management and clarification of medical treatment goals. Appreciation Thank you for the opportunity to participate in the care of Papa Brantley.
--- NOTE | 2018-04-30 17:42 | P.PNPAL ---
Reason for Visit Reason for visit: Reason for Visit: a. To assist with evaluation and management of symptoms including:Altered mental status b. To assist medical decision maker(s) with: better understanding of current medical conditions; weighing benefits/burdens of medical treatment options; making medical treatment decisions. Subjective Subjective/Interval History: Mr. Brantley is a 67-year-old male patient with a history of paranoid schizophrenia who lives at [facility]. He presented to [facility] ED via EMS on with altered mental status with some right-sided weakness in the upper extremity and slurred speech. After being evaluated the patient was admitted for management of acute renal failure, UTI, hyperkalemia and confusion. Follow-up visit for symptom management and clarification of medical treatment goals. Clinical data: * WBC 7.5, hemoglobin 9.0, hematocrit 27.3, platelets 117, neutrophils 81.1% * Sodium: 152, potassium 6.0, chloride 130, carbon dioxide 14.2, glucose 181, calcium 8.3, phosphorus 7.1 * BUN: 79, creatinine 5.52, GFR 10 * Iron: 42, TIBC 218, % saturation 19.2, ferritin 99 * Total protein: 6.7, albumin 3.0 Patient has been refusing PO intake and care. He is stating he just wants to be left alone. Psychiatry was consulted to determine patient's capacity for medical decision-making. Dr. Adhikari evaluated the patient and found that he did not have decision-making capacity to refuse treatment or leave AMA. Palliative care met with the patient's family to discuss medical treatment goals. Patient has advanced kidney disease, and if this does not improve he may need dialysis. Kidney functioning worse today with BUN 79, creatinine 5.52 and GFR 10. Patient's family states the patient would not be accepting or tolerant of such an invasive procedure if it got to that point. They would like to treat the patient's UTI if indicated, otherwise they are leaning toward comfort focused care. Plan to meet with the hospice admission nurse tomorrow ; hospice admissions was notified. Family/Friend Interactions: See interval history Advance Directives Significant change in goals:: Considering transitioning to comfort focused care. Plan to meet with hospice tomorrow 05/01/2018. Objective Vital Signs: Vital Signs 04/29/18 20:00 04/30/18 00:00 04/30/18 04:00 Temperature 98.3 F 97.7 F 98.2 F Pulse Rate 113 H 107 H 105 H Respiratory Rate 16 16 16 Blood Pressure 137/65 123/64 105/63 Pulse Oximetry 98 97 96 04/30/18 08:00 04/30/18 11:25 04/30/18 16:00 Temperature 98.1 F 98.4 F Pulse Rate 101 H 103 H 92 H Respiratory Rate 18 18 Blood Pressure 109/71 136/67 Pulse Oximetry 100 100 Intake & Output 04/29/18 04/30/18 04/30/18 18:59 06:59 18:59 Intake Total 800 / 800 240 / 240 Output Total 450 / 450 Balance 350 / 350 240 / 240 Intake: IV 800 / 800 NS Inj 1,000 ML @ 70 mls/hr IV. 800 / 800 CONT .[id number] PATRICK Rx#:[id number] Oral 240 / 240 Output: Urine Amount (Catheter) 450 / 450 Straight 450 / 450 Other: # Incontinent Voids 1 Date of Last Bowel Movement 04/30/18 # Bowel Movements 1 Physical Exam: Physical Exam: CONSTITUTIONAL/GENERAL: This is an adequately nourished patient, in no apparent distress. TUBES/LINES/DRAINS: SKIN: No wounds seen anteriorly. Not diaphoretic. HEAD: Atraumatic. Normocephalic. EYES: Pupils equal and round and reactive. No scleral icterus. No injection or drainage. Fundi not examined. ENT: Hearing grossly normal. Nose without bleeding or purulent drainage. NECK: Trachea midline. CARDIOVASCULAR: Generalized pallor. Trace edema RESPIRATORY/CHEST: Symmetric, unlabored respirations. No accessory muscle use GASTROINTESTINAL: Abdomen soft, nondistended. GENITOURINARY: Without palpable bladder distension. MUSCULOSKELETAL: Extremities without clubbing or cyanosis. Trace edema. LYMPHATICS: No palpable cervical or supraclavicular adenopathy. NEUROLOGICAL: Answering questions. Able to make needs known moves all extremities. PSYCHIATRIC: Flat affect. Does not make eye contact. Diagnostic Tests Laboratory: Laboratory Results - last 72 hr 04/28/18 04/28/18 04/28/18 16:51 16:51 16:51 WBC 9.3 RBC 2.94 L Hgb 9.1 L Hct 27.4 L MCV 93.2 MCH 31.0 MCHC 33.2 RDW 15.0 Plt Count 103 L MPV 10.2 Neut % (Auto) 85.1 H Lymph % (Auto) 7.9 L [place] % (Auto) 6.4 Eos % (Auto) 0.5 Baso % (Auto) 0.1 Neut # (Auto) 7.9 H Lymph # (Auto) 0.7 L [place] # (Auto) 0.6 Eos # (Auto) 0.0 Baso # (Auto) 0.0 WBC Differential . Differential Comment Auto diff final Sodium 143 Potassium 5.5 H Chloride 121 H Carbon Dioxide 12.4 L Anion Gap 10 BUN 81 H Creatinine 5.34 H Estimated GFR 11 L POC Glucose Random Glucose 155 H Calcium 8.4 L Phosphorus Magnesium 1.9 Iron TIBC % Saturation Ferritin Total Bilirubin 0.2 AST 25 ALT 29 Alkaline Phosphatase 170 H Troponin I 0.03 Total Protein 7.3 Total Protein (PEP) Albumin 3.0 L Free PSA Total PSA PSA Free/Total Ratio TSH Urine Color Yellow Urine Clarity Cloudy H Urine pH 5.0 Ur Specific [place] 1.008 Urine Protein 30 H Urine Glucose (UA) 50 Urine Ketones Negative Urine Occult Blood Small H Urine Nitrate Negative Urine Bilirubin Negative Urine Urobilinogen Less than 2 Ur Leukocyte Esterase Negative Urine RBC 1 Urine WBC 1 Ur Transition Epith Cell 1 Amorphous Sediment Rare H Urine Bacteria Occasional H Micro UA Comment Cath-culture ind Ur Microscopic Review Not Reportable Urine Culture Comments Cath-cult indicated Urine Osmolality Ur Random Creatinine 04/28/18 04/28/18 04/28/18 19:16 19:16 20:32 WBC RBC Hgb Hct MCV MCH MCHC RDW Plt Count MPV Neut % (Auto) Lymph % (Auto) [place] % (Auto) Eos % (Auto) Baso % (Auto) Neut # (Auto) Lymph # (Auto) [place] # (Auto) Eos # (Auto) Baso # (Auto) WBC Differential Differential Comment Sodium Potassium 5.1 Chloride Carbon Dioxide Anion Gap BUN Creatinine Estimated GFR POC Glucose 37 L* Random Glucose Calcium Phosphorus Magnesium Iron TIBC % Saturation Ferritin Total Bilirubin AST ALT Alkaline Phosphatase Troponin I Total Protein Total Protein (PEP) Albumin Free PSA 1.4 Total PSA 3.0 PSA Free/Total Ratio 0 TSH Urine Color Urine Clarity Urine pH Ur Specific [place] Urine Protein Urine Glucose (UA) Urine Ketones Urine Occult Blood Urine Nitrate Urine Bilirubin Urine Urobilinogen Ur Leukocyte Esterase Urine RBC Urine WBC Ur Transition Epith Cell Amorphous Sediment Urine Bacteria Micro UA Comment Ur Microscopic Review Urine Culture Comments Urine Osmolality Ur Random Creatinine 04/28/18 04/29/18 04/29/18 20:56 02:04 02:19 WBC RBC Hgb Hct MCV MCH MCHC RDW Plt Count MPV Neut % (Auto) Lymph % (Auto) [place] % (Auto) Eos % (Auto) Baso % (Auto) Neut # (Auto) Lymph # (Auto) [place] # (Auto) Eos # (Auto) Baso # (Auto) WBC Differential Differential Comment Sodium Potassium Chloride Carbon Dioxide Anion Gap BUN Creatinine Estimated GFR POC Glucose 154 H 38 L* 201 H Random Glucose Calcium Phosphorus Magnesium Iron TIBC % Saturation Ferritin Total Bilirubin AST ALT Alkaline Phosphatase Troponin I Total Protein Total Protein (PEP) Albumin Free PSA Total PSA PSA Free/Total Ratio TSH Urine Color Urine Clarity Urine pH Ur Specific [place] Urine Protein Urine Glucose (UA) Urine Ketones Urine Occult Blood Urine Nitrate Urine Bilirubin Urine Urobilinogen Ur Leukocyte Esterase Urine RBC Urine WBC Ur Transition Epith Cell Amorphous Sediment Urine Bacteria Micro UA Comment Ur Microscopic Review Urine Culture Comments Urine Osmolality Ur Random Creatinine 04/29/18 04/29/18 04/29/18 06:34 06:34 07:58 WBC 7.6 RBC 2.97 L Hgb 9.2 L Hct 27.3 L MCV 91.9 MCH 30.9 MCHC 33.6 RDW 14.7 Plt Count 120 L MPV 10.5 Neut % (Auto) Lymph % (Auto) [place] % (Auto) Eos % (Auto) Baso % (Auto) Neut # (Auto) Lymph # (Auto) [place] # (Auto) Eos # (Auto) Baso # (Auto) WBC Differential Differential Comment Sodium 148 H Potassium 5.4 H Chloride 127 H Carbon Dioxide 12.9 L Anion Gap 8 BUN 75 H Creatinine 5.15 H Estimated GFR 11 L POC Glucose 41 L* Random Glucose 30 L* D Calcium 8.7 Phosphorus Magnesium Iron TIBC % Saturation Ferritin Total Bilirubin AST ALT Alkaline Phosphatase Troponin I Total Protein Total Protein (PEP) Albumin Free PSA Total PSA PSA Free/Total Ratio TSH 0.619 Urine Color Urine Clarity Urine pH Ur Specific [place] Urine Protein Urine Glucose (UA) Urine Ketones Urine Occult Blood Urine Nitrate Urine Bilirubin Urine Urobilinogen Ur Leukocyte Esterase Urine RBC Urine WBC Ur Transition Epith Cell Amorphous Sediment Urine Bacteria Micro UA Comment Ur Microscopic Review Urine Culture Comments Urine Osmolality Ur Random Creatinine 04/29/18 04/29/18 04/29/18 08:12 09:56 13:05 WBC RBC Hgb Hct MCV MCH MCHC RDW Plt Count MPV Neut % (Auto) Lymph % (Auto) [place] % (Auto) Eos % (Auto) Baso % (Auto) Neut # (Auto) Lymph # (Auto) [place] # (Auto) Eos # (Auto) Baso # (Auto) WBC Differential Differential Comment Sodium Potassium Chloride Carbon Dioxide Anion Gap BUN Creatinine Estimated GFR POC Glucose 223 H 115 H 96 Random Glucose Calcium Phosphorus Magnesium Iron TIBC % Saturation Ferritin Total Bilirubin AST ALT Alkaline Phosphatase Troponin I Total Protein Total Protein (PEP) Albumin Free PSA Total PSA PSA Free/Total Ratio TSH Urine Color Urine Clarity Urine pH Ur Specific [place] Urine Protein Urine Glucose (UA) Urine Ketones Urine Occult Blood Urine Nitrate Urine Bilirubin Urine Urobilinogen Ur Leukocyte Esterase Urine RBC Urine WBC Ur Transition Epith Cell Amorphous Sediment Urine Bacteria Micro UA Comment Ur Microscopic Review Urine Culture Comments Urine Osmolality Ur Random Creatinine 04/29/18 04/29/18 04/29/18 14:44 15:15 15:15 WBC RBC Hgb Hct MCV MCH MCHC RDW Plt Count MPV Neut % (Auto) Lymph % (Auto) [place] % (Auto) Eos % (Auto) Baso % (Auto) Neut # (Auto) Lymph # (Auto) [place] # (Auto) Eos # (Auto) Baso # (Auto) WBC Differential Differential Comment Sodium Potassium Chloride Carbon Dioxide Anion Gap BUN Creatinine Estimated GFR POC Glucose 85 Random Glucose Calcium Phosphorus Magnesium Iron TIBC % Saturation Ferritin Total Bilirubin AST ALT Alkaline Phosphatase Troponin I Total Protein Total Protein (PEP) Albumin Free PSA Total PSA PSA Free/Total Ratio TSH Urine Color Urine Clarity Urine pH Ur Specific [place] Urine Protein Urine Glucose (UA) Urine Ketones Urine Occult Blood Urine Nitrate Urine Bilirubin Urine Urobilinogen Ur Leukocyte Esterase Urine RBC Urine WBC Ur Transition Epith Cell Amorphous Sediment Urine Bacteria Micro UA Comment Ur Microscopic Review Urine Culture Comments Urine Osmolality 308 Ur Random Creatinine 39 04/29/18 04/29/18 04/29/18 15:33 17:30 21:35 WBC RBC Hgb Hct MCV MCH MCHC RDW Plt Count MPV Neut % (Auto) Lymph % (Auto) [place] % (Auto) Eos % (Auto) Baso % (Auto) Neut # (Auto) Lymph # (Auto) [place] # (Auto) Eos # (Auto) Baso # (Auto) WBC Differential Differential Comment Sodium Potassium Chloride Carbon Dioxide Anion Gap BUN Creatinine Estimated GFR POC Glucose 102 158 H 182 H Random Glucose Calcium Phosphorus Magnesium Iron TIBC % Saturation Ferritin Total Bilirubin AST ALT Alkaline Phosphatase Troponin I Total Protein Total Protein (PEP) Albumin Free PSA Total PSA PSA Free/Total Ratio TSH Urine Color Urine Clarity Urine pH Ur Specific [place] Urine Protein Urine Glucose (UA) Urine Ketones Urine Occult Blood Urine Nitrate Urine Bilirubin Urine Urobilinogen Ur Leukocyte Esterase Urine RBC Urine WBC Ur Transition Epith Cell Amorphous Sediment Urine Bacteria Micro UA Comment Ur Microscopic Review Urine Culture Comments Urine Osmolality Ur Random Creatinine 04/30/18 04/30/18 04/30/18 00:01 07:34 12:35 WBC RBC Hgb Hct MCV MCH MCHC RDW Plt Count MPV Neut % (Auto) Lymph % (Auto) [place] % (Auto) Eos % (Auto) Baso % (Auto) Neut # (Auto) Lymph # (Auto) [place] # (Auto) Eos # (Auto) Baso # (Auto) WBC Differential Differential Comment Sodium Potassium Chloride Carbon Dioxide Anion Gap BUN Creatinine Estimated GFR POC Glucose 195 H 214 H 241 H Random Glucose Calcium Phosphorus Magnesium Iron TIBC % Saturation Ferritin Total Bilirubin AST ALT Alkaline Phosphatase Troponin I Total Protein Total Protein (PEP) Albumin Free PSA Total PSA PSA Free/Total Ratio TSH Urine Color Urine Clarity Urine pH Ur Specific [place] Urine Protein Urine Glucose (UA) Urine Ketones Urine Occult Blood Urine Nitrate Urine Bilirubin Urine Urobilinogen Ur Leukocyte Esterase Urine RBC Urine WBC Ur Transition Epith Cell Amorphous Sediment Urine Bacteria Micro UA Comment Ur Microscopic Review Urine Culture Comments Urine Osmolality Ur Random Creatinine 04/30/18 04/30/18 15:05 15:05 WBC 7.5 RBC 2.94 L Hgb 9.0 L Hct 27.3 L MCV 93.0 MCH 30.6 MCHC 32.9 RDW 15.6 Plt Count 117 L MPV 10.0 Neut % (Auto) 81.1 H Lymph % (Auto) 10.0 [place] % (Auto) 6.6 Eos % (Auto) 2.0 Baso % (Auto) 0.3 Neut # (Auto) 6.1 Lymph # (Auto) 0.8 L [place] # (Auto) 0.5 Eos # (Auto) 0.1 Baso # (Auto) 0.0 WBC Differential . Differential Comment Auto diff final Sodium 152 H Potassium 6.0 H Chloride 130 H Carbon Dioxide 14.2 L Anion Gap 8 BUN 79 H Creatinine 5.52 H Estimated GFR 10 L POC Glucose Random Glucose 182 H D Calcium 8.3 L Phosphorus 7.1 H Magnesium Iron 42 L TIBC 218 L % Saturation 19.2 L Ferritin 99 Total Bilirubin AST ALT Alkaline Phosphatase Troponin I Total Protein Total Protein (PEP) 6.7 Albumin 3.0 L Free PSA Total PSA PSA Free/Total Ratio TSH Urine Color Urine Clarity Urine pH Ur Specific [place] Urine Protein Urine Glucose (UA) Urine Ketones Urine Occult Blood Urine Nitrate Urine Bilirubin Urine Urobilinogen Ur Leukocyte Esterase Urine RBC Urine WBC Ur Transition Epith Cell Amorphous Sediment Urine Bacteria Micro UA Comment Ur Microscopic Review Urine Culture Comments Urine Osmolality Ur Random Creatinine Result Diagrams: 04/30/18 15:05 04/30/18 15:05 Microbiology: Microbiology 04/28/18 16:51 Urine Culture - Final Catheterized Urine No growth in 48 hours Imaging: Head CT 04/28/18 16:42 CONCLUSION: 1. Stable mild atrophy without acute intracranial abnormality. Chest X-Ray 04/28/18 17:53 CONCLUSION: 1. Motion degraded exam. 2. Otherwise, no acute abnormality. Abdomen X-Ray 04/29/18 00:00 CONCLUSION: 1. Stippled calcifications overlying the region of the pancreas suggestive of chronic pancreatitis. 2. Nonspecific bowel gas pattern with stool throughout the colon. Abdomen/Bladder Ultrasound 04/29/18 00:00 CONCLUSION: 1. Echogenic kidneys consistent with medical renal disease. 2. No sonographic evidence for significant obstructive uropathy. Head MRI 04/29/18 07:10 CONCLUSION: 1. No acute findings. No recent infarct. Mild chronic white matter ischemic changes. Assessment and Plan Pertinent Non-Medical Issues: Psychosocial: Patient was born in [place]. Patient has 4 siblings. He graduated from [employer] and completed 1-1/2 years of college at [employer]. He was never and has no children. His father from throat cancer in 1990. Patient has a history of paranoid schizophrenia, anxiety and depression. He has had multiple psychiatric hospitalizations. Patient's sister states he and his early 20s and surfing in [place] when he first developed symptoms. He currently lives in a long-term care facility. Spiritual: Raised [employer]ism. Family requesting fulling mill operator to provide [facility] of [facility] if patient is accepting. Legal: Per [place] statutes, in the absence of written advanced directives healthcare proxy decision making would fall to the patient's mother. Ethical issues impacting care: No known ethical issues impacting care at this time. Important Contacts: Lea Brantley, mother: [phone] Varsha Mallory, sister: [phone] Prognosis: Patient is a 67-year-old with a long history of mental illness. He is currently hospitalized with acute kidney insufficiency, hyperkalemia, UTI and confusion. Patient has a diagnosis of paranoid schizophrenia. He has been intermittently agitated during this hospitalization, pulling out his IV this morning and refusing care psychiatry evaluated the patient and deemed he did not have capacity for medical decision-making at this time. Should the patient' s kidney disease deteriorate to the point of requiring dialysis, patient likely would be on excepting and intolerant of dialysis. Code Status: No Code DNR Plan: * NO CODE * Community DNR can be found in patient's EMR; copy was also faxed from the facility where the patient resides. * Psychiatry, Dr. Adhikari, evaluated the patient and found that he did not have decision-making capacity to refuse treatment or leave AMA. * Per [place] statutes, in the absence of written advanced directives healthcare proxy decision making would fall to the patient's mother, but she has opted out of this role. Per [place] statute medical decision making would then fall to the patient's 4 adult siblings but 3 of the 4 siblings do not want to participate in the role of healthcare person proxy decision-maker. Sister, Jaye Mallory, will be acting in the role of healthcare proxy decision-maker. * Discussed with Amy Gurrola (Nephrology MANAGER ENT) and nurseSuraj. * Patient has advanced kidney disease, and if this does not improve he may need dialysis. Kidney functioning worse today with BUN 79, creatinine 5.52 and GFR 10. Patient's family states the patient would not be accepting or tolerant of such an invasive procedure if it got to that point. They would like to meet with the hospice admission nurse tomorrow 05/01/2018; hospice admissions was notified. * Symptom managed -altered mental status: Patient has a long history of mental illness requiring multiple psychiatric hospitalizations. He has a diagnosis of paranoid schizophrenia. Patient is unable to live alone and resides at [facility]. Patient pulled out his IV this morning. Liu catheter was not left in place because of concerns that the patient may pull it out. Psychiatry was consulted to determine capacity for medical decision making as well as recommendations in managing underlying mental illness. * Palliative care will continue to follow this patient throughout his hospitalization to establish trust, assist with symptom management and clarification of medical treatment goals.
[2018-04-30] MEDS: DEXTROSE IV.CONT SCH (17:44)
[2018-04-30] MEDS: NACL 0.225% IV.CONT SCH (17:44)
[2018-04-30] MEDS: SODIUM BICARBONATE IV.CONT SCH (17:44)
[2018-05-01] MEDS: DEXTROSE IV.CONT SCH ×2 (05:44→12:31)
[2018-05-01] MEDS: NACL 0.225% IV.CONT SCH ×2 (05:44→12:31)
[2018-05-01] MEDS: SODIUM BICARBONATE IV.CONT SCH ×2 (05:44→12:31)
[2018-05-01] MEDS: Insulin NovoLOG Aspart Correctional Sugar Inj SQ SCH ×2 (09:26→12:31)
[2018-05-01] MEDS: LORazepam 0.5 MG Tablet PO SCH (09:27)
--- NOTE | 2018-05-01 10:10 | P.DS ---
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 He presents to the ER with altered mental status. As outpatient he has recently exhibited an increase in his creatinine level to 3.15 , his compliance with treatment for this has been poor due to his psychiatric state. He lives at an assisted living facility, but care there has been inadequate to assist with his needs. He presents today with creatinine above 5.0, confusion, urinary tract infection. Staff complained of right arm weakness. Patient is a very poor historian, unable to relay a story of any sort. ER staff introduced a urinary catheter which produced 1500 cc of urine over 2 hours. This seems to indicate that patient has a urinary outflow obstruction due to most likely an enlarged prostate. pt refusing care. Poa elects hospice. DS: Diagnosis - Discharge Diagnosis (1) Acute kidney injury Status: Acute (2) Chronic kidney disease Status: Acute (3) Urinary tract infection Status: Acute (4) Diabetes Status: Acute (5) Schizo NEC, chrn/exacerb Status: Acute (6) Dehydration with hypernatremia Status: Acute DS: Summary Hospital Course: admit w weakness. found with RF. pt refusing care. POA elects hospice. - Time Spent with Patient Total time spent providing and/or coordinating discharge services: Greater than 30 minutes - Quality: AMI Clinical Trial Participant: No - Quality: VTE Deep Vein Thrombosis/Pulmonary Embolism Present on Admission: No Exam Vital signs: Vital Signs 04/30/18 11:25 04/30/18 16:00 04/30/18 20:00 Temperature 98.1 F 98.4 F 97.9 F Pulse Rate 103 H 92 H 80 Respiratory Rate 18 18 18 Blood Pressure 109/71 136/67 133/60 Pulse Oximetry 100 100 100 05/01/18 00:00 05/01/18 03:06 05/01/18 07:11 Temperature 97.1 F L 97.4 F L 98.1 F Pulse Rate 105 H 114 H 104 H Respiratory Rate 17 17 16 Blood Pressure 136/70 115/74 100/59 L Pulse Oximetry 100 94 L 95 Intake & Output 04/30/18 05/01/18 05/01/18 18:59 06:59 18:59 Other: # Voids 4 Date of Last Bowel Movement 04/30/18 - Constitutional no acute distress - Routine HEENT Exam Head: Present: normocephalic Eye: Present: EOMI, PERRL - Routine Neck Exam Present: full ROM - Routine Respiratory Exam Present: CTA bilaterally, distant breath sounds - Routine Cardiovascular Exam Present: RRR, S1, S2 - Routine Abdominal Exam Present: soft, normoactive bowel sounds - Routine Extremities Exam Present: edema, full ROM - Routine Skin Exam Present: intact, warm - Routine Neurological Exam Present: alert, oriented X3, normal reflexes Results Procedures completed during hospitalization: na Labs on day of discharge: Labs from last 24 hours 05/01/18 05/01/18 04/30/18 08:42 05:40 18:04 WBC RBC Hgb Hct MCV MCH MCHC RDW Plt Count MPV Neut % (Auto) Lymph % (Auto) [place] % (Auto) Eos % (Auto) Baso % (Auto) Neut # (Auto) Lymph # (Auto) [place] # (Auto) Eos # (Auto) Baso # (Auto) WBC Differential Differential Comment Sodium Potassium Chloride Carbon Dioxide Anion Gap BUN Creatinine Estimated GFR POC Glucose 281 H 252 H 172 H Random Glucose Calcium Phosphorus Iron TIBC % Saturation Ferritin Total Protein (PEP) Albumin Albumin (PEP) Albumin/Globulin Ratio Mpeqr-5-Hamlcejsi Srlik-6-Cljzjhhxn Beta Globulins Gamma Globulins PEP Pathologist Comment 04/30/18 04/30/18 04/30/18 15:05 15:05 12:35 WBC 7.5 RBC 2.94 L Hgb 9.0 L Hct 27.3 L MCV 93.0 MCH 30.6 MCHC 32.9 RDW 15.6 Plt Count 117 L MPV 10.0 Neut % (Auto) 81.1 H Lymph % (Auto) 10.0 [place] % (Auto) 6.6 Eos % (Auto) 2.0 Baso % (Auto) 0.3 Neut # (Auto) 6.1 Lymph # (Auto) 0.8 L [place] # (Auto) 0.5 Eos # (Auto) 0.1 Baso # (Auto) 0.0 WBC Differential . Differential Comment Auto diff final Sodium 152 H Potassium 6.0 H Chloride 130 H Carbon Dioxide 14.2 L Anion Gap 8 BUN 79 H Creatinine 5.52 H Estimated GFR 10 L POC Glucose 241 H Random Glucose 182 H D Calcium 8.3 L Phosphorus 7.1 H Iron 42 L TIBC 218 L % Saturation 19.2 L Ferritin 99 Total Protein (PEP) 6.7 Albumin 3.0 L Albumin (PEP) 3.76 Albumin/Globulin Ratio 1.28 L Qdfkz-4-Jesxuybin 0.25 Asuuy-0-Wuszrnyfw 0.92 Beta Globulins 0.82 Gamma Globulins 0.95 PEP Pathologist Comment Pending - Impressions ITS Impressions Head CT 04/28/18 16:42 CONCLUSION: 1. Stable mild atrophy without acute intracranial abnormality. . Chest X-Ray 04/28/18 17:53 CONCLUSION: 1. Motion degraded exam. 2. Otherwise, no acute abnormality. Abdomen X-Ray 04/29/18 00:00 CONCLUSION: 1. Stippled calcifications overlying the region of the pancreas suggestive of chronic pancreatitis. 2. Nonspecific bowel gas pattern with stool throughout the colon. Abdomen/Bladder Ultrasound 04/29/18 00:00 CONCLUSION: 1. Echogenic kidneys consistent with medical renal disease. 2. No sonographic evidence for significant obstructive uropathy. Head MRI 04/29/18 07:10 CONCLUSION: 1. No acute findings. No recent infarct. Mild chronic white matter ischemic changes. Discharge Plan - Discharge Disposition Patient Disposition: 51 Hospice/Med Facility - Discharge Condition Condition: Fair - Discharge Order Discharge Orders: Discharge Order (Routine); Ordered 05/01/18 Ordered By: Eloy Boogie - Physicians Team Primary Care Provider: Eloy Boogie Attending Provider: Eloy Boogie Other Providers: [employer],Insurance ; Cooper Rhodes MD ; Radha Berrios MD ; Cedrick Adhikari MD ; [facility],Agency
--- NOTE | 2018-05-01 11:16 | P.PNNP ---
Subjective Interval history: Patient remain sleepy and confused. <Radha Berrios - Last Filed: 05/02/18 21:36> Physical Exam Vital signs: Vital Signs 04/30/18 11:25 04/30/18 16:00 04/30/18 20:00 Temperature 98.1 F 98.4 F 97.9 F Pulse Rate 103 H 92 H 80 Respiratory Rate 18 18 18 Blood Pressure 109/71 136/67 133/60 Pulse Oximetry 100 100 100 05/01/18 00:00 05/01/18 03:06 05/01/18 07:11 Temperature 97.1 F L 97.4 F L 98.1 F Pulse Rate 105 H 114 H 104 H Respiratory Rate 17 17 16 Blood Pressure 136/70 115/74 100/59 L Pulse Oximetry 100 94 L 95 Intake & Output 04/30/18 05/01/18 05/01/18 18:59 06:59 18:59 Other: # Voids 4 Date of Last Bowel Movement 04/30/18 Narrative: GENERAL: Confused and mumbles when asked questions. SKIN: Warm and dry. NECK: Supple, trachea midline. No JVD or lymphadenopathy. CARDIOVASCULAR: Regular rate and rhythm without murmurs, gallops, or rubs. RESPIRATORY: Breath sounds equal bilaterally. No accessory muscle use. GASTROINTESTINAL: Abdomen soft, non-tender, large MUSCULOSKELETAL: No cyanosis, or edema. BACK: Nontender without obvious deformity. No CVA tenderness. - Urinary Catheter Management Indwelling Urethral Catheter Cath placed during this visit: yes, but has since been removed by the nurse Urethral indwelling: No Reason for continuing: Decision to DC catheter Insertion date: 04/28/18 Insertion time: 16:45 Removal date: 04/28/18 Removal time: 18:31 Straight Cath placed during this visit: no <Amy Moreno - Last Filed: 05/01/18 15:11> - Urinary Catheter Management Indwelling Urethral Catheter Cath placed during this visit: no Straight Cath placed during this visit: no <Radha Berrios - Last Filed: 05/02/18 21:36> Assessment and Plan - Assessment (1) Acute kidney injury Code(s): N17.9 - Acute kidney failure, unspecified Status: Acute (2) Chronic kidney disease Code(s): N18.9 - Chronic kidney disease, unspecified Status: Acute (3) Urinary tract infection Code(s): N39.0 - Urinary tract infection, site not specified Status: Acute (4) Diabetes Code(s): E11.9 - Type 2 diabetes mellitus without complications Status: Acute Qualifiers: Diabetes mellitus type: type 2 Diabetes mellitus complication status: with kidney complications Chronic kidney disease stage: stage 4 (severe) - Plan Worsening renal function POA has decided to continue with comfort care, hospice. <Aym Moreno - Last Filed: 05/01/18 15:11> - Assessment (1) Acute kidney injury Code(s): N17.9 - Acute kidney failure, unspecified Status: Acute (2) Chronic kidney disease Code(s): N18.9 - Chronic kidney disease, unspecified Status: Acute (3) Urinary tract infection Code(s): N39.0 - Urinary tract infection, site not specified Status: Acute (4) Diabetes Code(s): E11.9 - Type 2 diabetes mellitus without complications Status: Acute Qualifiers: Diabetes mellitus type: type 2 Diabetes mellitus complication status: with kidney complications Chronic kidney disease stage: stage 4 (severe) - Plan Patient has increase in the Creatinine, now POA decided to go for Hospice. Will sign off from Nephrology. <Radha Berrios - Last Filed: 05/02/18 21:36> Progress Note: Quality - AMI Clinical Trial Participant: No <Amy Moreno - Last Filed: 05/01/18 15:11>
== END 2018-05-01 16:31 | disposition hospice, inpatient (51) ==
LOC: NEPE 16:29 → NEDA 16:29 → NEPGCP 19:24
PROVIDERS: ADMIT Family Medicine; ATTEND Family Medicine
DX: Z83.3 Family history of diabetes mellitus; I12.9 Hypertensive chronic kidney disease with stage 1 through stage 4 chronic kidney disease, or unspecified chronic kidney disease; E86.0 Dehydration; D69.6 Thrombocytopenia, unspecified; E03.9 Hypothyroidism, unspecified; Z80.8 Family history of malignant neoplasm of other organs or systems; N18.4 Chronic kidney disease, stage 4 (severe); E78.5 Hyperlipidemia, unspecified; R94.31 Abnormal electrocardiogram [ECG] [EKG]; N13.8 Other obstructive and reflux uropathy; F20.0 Paranoid schizophrenia; E11.649 Type 2 diabetes mellitus with hypoglycemia without coma; N40.1 Benign prostatic hyperplasia with lower urinary tract symptoms; Z79.899 Other long term (current) drug therapy; Z91.19 Patient's noncompliance with other medical treatment and regimen; E87.0 Hyperosmolality and hypernatremia; G21.19 Other drug induced secondary parkinsonism; N17.9 Acute kidney failure, unspecified; F32.9 Major depressive disorder, single episode, unspecified; N39.0 Urinary tract infection, site not specified; K21.9 Gastro-esophageal reflux disease without esophagitis; E87.5 Hyperkalemia; Z66 Do not resuscitate